=== PATIENT | male | born 1940 | race Caucasian/White ===

== ENCOUNTER → 2022-04-06 09:35 | Outpatient (CLI) | payer MEDICARE, BC, SELFPAY ==
--- NOTE | 2022-04-06 09:37 | DI.RAD.S_ITS ---
PROCEDURE: XR HIP W PEL IF DONE RT 2V INDICATIONS: hip pain TECHNIQUE: AP pelvis with lateral view(s) of the right hip(s). COMPARISON: None. FINDINGS: Bones: No fractures or dislocations. Mild degenerative changes of both hips. Pelvic ring appears intact. No suspicious bony lesions. Soft tissues: The visualized bowel gas pattern is normal. No suspicious soft tissue calcifications. IMPRESSION: Mild degenerative changes of both hips. Dictated by: Som Menendez M.D. on 04/06/2022 at 9:19 Approved by: Som Menendez M.D. on 04/06/2022 at 9:20
== END ==
PROVIDERS: PCP Internal Medicine; Referring Provider Physician Assistant; Visit Provider Physician Assistant
DX: M25.551 Pain in right hip (principal)
CPT/HCPCS: 73502

== ENCOUNTER → 2022-07-19 07:48 | Outpatient (CLI) | payer MEDICARE, BC, SELFPAY ==
[2022-07-19 08:37] LABS: Add Manual Diff / Slide Review NO; Basophils Absolute Auto 0 /uL (0-100); Basophils Percent Auto 0.5 % (0-2); Eosinophils Absolute Auto 100 /uL (0-450); Eosinophils Percent Auto 1.3 % (2-4); Hematocrit 42.4 % (41-53); Hemoglobin 14.1 g/dL (13.5-17.5); Lymphocytes Absolute Auto 1100 /uL (1100-4500); Lymphocytes Percent Auto 23.9 % (25-40); Mean Corpuscular HGB Conc 33.4 % (30-36); Mean Corpuscular Volume 95.8 fL (80-100); Monocytes Absolute Auto 500 /uL (0-900); Monocytes Percent Auto 9.6 % (3-14); Neutrophils Absolute Auto 3000 /uL (1500-7000); Neutrophils Percent Auto 64.7 % (50-75); Platelet Count 212 X10^3/uL (150-400); Red Blood Cell Count 4.42 X10^6/uL (4.5-5.9); Red Cell Distribution Width 13.6 % (11.6-14.8); White Blood Cell Count 4.7 X10^3/uL (4.5-11.0)
[2022-07-19 08:52] LABS: Alanine Aminotransferase 23 IU/L (<50); Albumin 4.1 g/dL (3.5-5.0); Albumin Globulin Ratio 1.5 (1.0-2.8); Alkaline Phosphatase 53 U/L (38-126); Aspartate Aminotransferase 29 IU/L (17-59); BUN Creatinine Ratio 18.6 (6-22); Bilirubin Total 0.6 mg/dL (0.2-1.3); Blood Urea Nitrogen 16 mg/dL (9-20); Calcium 8.6 mg/dL (8.4-10.2); Carbon Dioxide 26 mmol/L (22-32); Chloride 104 mmol/L (98-107); Cholesterol 148 mg/dL (140-199); Estimated Glomerular Filt Rate > 60 mL/min (>60); Globulin 2.7 g/dL (1.7-4.1); Glucose 93 mg/dL (80-110); HDL Cholesterol 64 mg/dL (40-60); HEMOLYSIS 20 (0-50); LDL Cholesterol Calculated 74 mg/dL (<100); Potassium 4.3 mmol/L (3.4-5.1); Sodium 139 mmol/L (137-145); Total Protein 6.8 g/dL (6.3-8.2); Triglycerides 50 mg/dL (35-150)
[2022-07-19 09:39] LABS: Vitamin B12 237 pg/mL (239-931)
== END ==
PROVIDERS: PCP Family Medicine; Referring Provider Family Medicine; Visit Provider Family Medicine
DX: G25.0 Essential tremor (principal); I10 Essential (primary) hypertension; N40.1 Benign prostatic hyperplasia with lower urinary tract symptoms; N52.9 Male erectile dysfunction, unspecified; R97.20 Elevated prostate specific antigen [PSA]; R41.3 Other amnesia
CPT/HCPCS: 36415; 80053; 80061; 82607; 84443; 85025

== ENCOUNTER → 2022-09-18 | Outpatient (CLI) | payer MEDICARE, BC, SELFPAY ==
--- NOTE | 2022-09-18 08:10 | DI.MRI.S_ITS ---
PROCEDURE: MR HEAD/BRAIN WO/W CON INDICATIONS: ABNORMAL FINDING ON MRI BRAIN TECHNIQUE: Noncontrast axial T1 spin echo, axial T2 fast spin echo, sagittal and axial FLAIR, coronal T2 fast spin echo, axial gradient echo, axial diffusion and ADC through the brain. After the administration of contrast, axial and coronal and sagittal T1 spin echo with fat saturation through the brain. COMPARISON: Brain MRI report dated 01/09/2022. FINDINGS: Image quality: Excellent. CSF spaces: Basal cisterns are patent. No extra-axial fluid collections. Ventricles are mildly enlarged and otherwise normal in size and shape. Brain: No midline shift. No acute intracranial bleeds or masses. Curvilinear low gradient echo signal intensity within the cortex and subcortical white matter of the left frontal lobe anteriorly and posterosuperiorly. No evidence of low gradient echo signal intensity within the left parietal lobe. No abnormal intracranial enhancement. There is cerebral volume loss for age. There is periventricular white matter chronic small vessel ischemic change. The brainstem appears normal. Diffusion-weighted images demonstrate no acute ischemic insults. No chronic ischemic insults. Normal intravascular flow voids are present. Skull and face: Calvarial marrow is normal in signal. Orbits appear normal. Sinuses: Sinuses and mastoids appear clear. IMPRESSION: 1. Volume loss and small vessel ischemic disease. 2. Low gradient echo signal intensity within the left cerebral hemisphere as reported before, consistent with sequelae of remote hemorrhage. No evidence of acute hemorrhage. 3. Lateral ventricular enlargement, similar to prior report, consistent with sequelae of volume loss, versus normal pressure hydrocephalus in the appropriate clinical setting. 4. No acute intracranial abnormality. No recent infarct. Dictated by: Shayla Jones M.D. on 09/27/2022 at 10:40 Approved by: Shayla Jones M.D. on 09/27/2022 at 10:43
--- NOTE | 2022-09-18 08:10 | DI.MRI.S_ITS ---
PROCEDURE: MR ANGIO HEAD WO CON INDICATIONS: ABNORMAL FINDING ON MRI BRAIN TECHNIQUE: Noncontrast axial 3-D [id number] MR angiogram, with 3-dimensional maximum intensity projection (MIP) reformats of the internal carotid arteries and posterior circulation then performed. COMPARISON: None. FINDINGS: Image quality: Excellent. Anterior circulation: Intracranial internal carotid arteries demonstrate normal size and intraluminal flow signal. The flow within the paired anterior cerebral arteries is normal and symmetric. The flow within the middle cerebral arteries is normal and symmetric. The anterior communicating artery is seen. No stenoses, occlusions, or aneurysms. Posterior circulation: Visualized portions of the vertebral arteries demonstrate normal caliber, and join to form a normal appearing basilar artery. The flow within the posterior cerebral arteries is normal and symmetric. No stenoses, occlusions, or aneurysms. IMPRESSION: Negative cerebral MR angiography. Dictated by: Shayla Jones M.D. on 09/27/2022 at 10:43 Transcribed by: ROLANDO on 09/27/2022 at 10:45 Approved by: Shayla Jones M.D. on 09/27/2022 at 15:47
== END ==
LOC: MRI 08:07
PROVIDERS: PCP Family Medicine; Referring Provider Psychiatry & Neurology Neurology; Visit Provider Psychiatry & Neurology Neurology
DX: R90.89 Other abnormal findings on diagnostic imaging of central nervous system (principal)
CPT/HCPCS: 70544; 70553; A9579

== ENCOUNTER → 2023-02-13 16:32 | Outpatient (CLI) | payer MEDICARE, BC, SELFPAY ==
--- NOTE | 2023-02-13 16:34 | DI.RAD.S_ITS ---
PROCEDURE: XR LUMBAR SPINE 2-3V INDICATIONS: RIGHT HIP AND LOW BACK PAIN TECHNIQUE: 3 views of the lumbar spine were acquired. COMPARISON: None. FINDINGS: Bones: 5 [id number] vertebrae are present. There is normal bony alignment. No vertebral body compression fractures. No suspicious bony lesions. Mild levocurvature centered at L3-L4. Multilevel degenerative disc space loss, severe at L2-L3. Lower lumbar facet arthropathy. Soft tissues: Overlying bowel gas pattern is normal. No suspicious soft tissue calcifications. IMPRESSION: Degenerative change. No evidence acute bony abnormality. If clinical suspicion and/or symptoms persist, further assessment with repeat plain films, or advanced imaging (e.g., CT, MRI, or bone scan) may be helpful for further assessment. Dictated by: Diego Young M.D. on 02/14/2023 at 10:06 Approved by: Diego Young M.D. on 02/14/2023 at 10:07
--- NOTE | 2023-02-13 16:34 | DI.RAD.S_ITS ---
PROCEDURE: XR HIP W PEL IF DONE RT 2V INDICATIONS: right hip and low back pain TECHNIQUE: AP pelvis with lateral view(s) of the right hip(s). COMPARISON: [facility], , XR HIP W PEL IF DONE RT 2V, 04/06/2022, 9:26. FINDINGS: Bones: No fractures or dislocations. Pelvic ring appears intact. No suspicious bony lesions. Bilateral hip degenerative change, right greater than left. Soft tissues: The visualized bowel gas pattern is normal. No suspicious soft tissue calcifications. IMPRESSION: Bilateral hip degenerative change. No evidence acute bony abnormality. If clinical suspicion and/or symptoms persist, further assessment with repeat plain films, or advanced imaging (e.g., CT, MRI, or bone scan) may be helpful for further assessment. Dictated by: Diego Young M.D. on 02/14/2023 at 10:03 Approved by: Diego Young M.D. on 02/14/2023 at 10:06
== END ==
PROVIDERS: PCP Family Medicine; Referring Provider Family Medicine; Visit Provider Family Medicine
DX: M54.50 Low back pain, unspecified (principal); M25.551 Pain in right hip
CPT/HCPCS: 72100; 73502

== ENCOUNTER → 2023-02-26 07:58 | Outpatient (CLI) | payer MEDICARE, BC, SELFPAY ==
[2023-02-26 08:47] LABS: Add Manual Diff / Slide Review NO; Basophils Absolute Auto 0 /uL (0-100); Basophils Percent Auto 0.5 % (0-2); Eosinophils Absolute Auto 100 /uL (0-450); Eosinophils Percent Auto 1.4 % (2-4); Hematocrit 41.7 % (41-53); Hemoglobin 14.3 g/dL (13.5-17.5); Lymphocytes Absolute Auto 1100 /uL (1100-4500); Lymphocytes Percent Auto 25.7 % (25-40); Mean Corpuscular HGB Conc 34.3 % (30-36); Mean Corpuscular Hemoglobin 32.8 PG (26-34); Mean Corpuscular Volume 95.6 fL (80-100); Monocytes Absolute Auto 500 /uL (0-900); Monocytes Percent Auto 11.5 % (3-14); Neutrophils Absolute Auto 2700 /uL (1500-7000); Neutrophils Percent Auto 60.9 % (50-75); Platelet Count 213 X10^3/uL (150-400); Red Blood Cell Count 4.37 X10^6/uL (4.5-5.9); White Blood Cell Count 4.4 X10^3/uL (4.5-11.0)
[2023-02-26 09:18] LABS: Alanine Aminotransferase 25 IU/L (<50); Albumin 4.3 g/dL (3.5-5.0); Albumin Globulin Ratio 1.7 (1.0-2.8); Alkaline Phosphatase 48 U/L (38-126); Aspartate Aminotransferase 31 IU/L (17-59); Bilirubin Total 0.6 mg/dL (0.2-1.3); Blood Urea Nitrogen 13 mg/dL (9-20); Carbon Dioxide 28 mmol/L (22-32); Chloride 102 mmol/L (98-107); Cholesterol 170 mg/dL (140-199); Estimated Glomerular Filt Rate > 60 mL/min (>60); Globulin 2.5 g/dL (1.7-4.1); Glucose 89 mg/dL (80-110); HDL Cholesterol 88 mg/dL (40-60); HEMOLYSIS < 15 (0-50); LDL Cholesterol Calculated 74 mg/dL (<100); Potassium 4.6 mmol/L (3.4-5.1); Sodium 137 mmol/L (137-145); Total Protein 6.8 g/dL (6.3-8.2); Triglycerides 39 mg/dL (35-150)
[2023-02-26 09:43] LABS: Prostate Specific Antigen 11.6 ng/mL (0.10-4.00)
== END ==
PROVIDERS: PCP Family Medicine; Referring Provider Family Medicine; Visit Provider Family Medicine
DX: G20 Parkinson's disease (principal); I10 Essential (primary) hypertension; N40.0 Benign prostatic hyperplasia without lower urinary tract symptoms; R97.20 Elevated prostate specific antigen [PSA]; G25.0 Essential tremor
CPT/HCPCS: 36415; 80053; 80061; 84153; 85025

== ENCOUNTER → 2023-05-17 11:30 | Outpatient (CLI) | payer MEDICARE, BC, SELFPAY ==
--- NOTE | 2023-05-17 11:32 | DI.RAD.S_ITS ---
PROCEDURE: XR HAND RT MIN 3V INDICATIONS: 1st MTP pain after fall TECHNIQUE: 3 views of the hand(s) acquired. COMPARISON: None. FINDINGS: Bones: No fractures or dislocations. Carpal bones are normally aligned. No suspicious bony lesions. Soft tissues: No suspicious soft tissue calcifications. IMPRESSION: Unremarkable right hand radiographs Approved by: Wellington Leong M.D. on 05/17/2023 at 12:49
== END ==
PROVIDERS: PCP Family Medicine; Referring Provider Physician Assistant; Visit Provider Physician Assistant
DX: M79.644 Pain in right finger(s) (principal)
CPT/HCPCS: 73130

== ENCOUNTER → 2023-06-05 15:10 | Outpatient (CLI) | payer MEDICARE, BC, SELFPAY ==
--- NOTE | 2023-06-05 15:11 | DI.MRI.S_ITS ---
PROCEDURE: MR PELVIC PROSTATE PROTOCOL INDICATIONS: Elevated PSA abnormal prostate TECHNIQUE: Coronal HASTE, axial T1 FSE with fat saturation, 3-plane nonbreath-hold T2 FSE. After the administration of contrast, dynamic axial, delayed axial and coronal VIBE or 2-D FLASH with fat saturation through the pelvis. Optional diffusion weighted imaging and ADC may be performed. COMPARISON: None. FINDINGS: Image quality: Diffusion weighted and dynamic contrast enhanced images are diagnostic. Prostate: The prostate measures 5.9 x 4.1 x 5.3 centimeters. Estimated volume is 67 cc. Centered in the left posterolateral mid gland peripheral zone, there is a T2 hypointense region measuring about 1.4 x 0.7 by 1.1 centimeters (4/16, 5/15). T2 score is 4. There is associated diffusion restriction (DWI score is 4). There is also associated dynamic contrast enhancement (/24). PI-RADS 4. Seminal vesicles are clear. No macroscopic extracapsular extension, although if biopsies are positive, extent of capsular contact of this lesion raises concern for micro capsular involvement. Transitional zone heterogenous nodules are present, either well encapsulated or mostly encapsulated, compatible with PI-RADS 1 or 2 likely BPH nodules. Mildly T2 hypointense heterogenous striated appearance of the peripheral zone is commonly seen with current or prior prostatitis, PI-RADS 2. Exophytic projection at the apex of the bladder likely additional BPH nodules. Genitourinary system: Trabeculated bladder with diverticula. No ureter dilation distally. Bowel and peritoneum: No bowel obstruction or pathologic ascites. Nodes and vessels: No pathologic lymph nodes. No aneurysmal vessel. Soft tissues: No hernias or pelvic wall significant abnormality. Bones: Unremarkable. IMPRESSION: PI-RADS 4 lesion centered in the left posterolateral peripheral zone mid gland. Dictated by: Gideon Dos Santos M.D. on 06/06/2023 at 9:38 Approved by: Gideon Dos Santos M.D. on 06/06/2023 at 9:42
== END ==
PROVIDERS: PCP Family Medicine; Referring Provider Urology; Visit Provider Urology
DX: N42.9 Disorder of prostate, unspecified (principal); R97.20 Elevated prostate specific antigen [PSA]
CPT/HCPCS: 72197; A9579

== ENCOUNTER → 2023-10-13 08:46 | Outpatient (CLI) | payer MEDICARE, BC, SELFPAY ==
--- NOTE | 2023-10-13 08:49 | DI.CT.S_ITS ---
PROCEDURE: CT ABDOMEN PELVIS W CON INDICATIONS: New diagnosis prostate cancer TECHNIQUE: After the administration of intravenous contrast, axial sections acquired from the lung bases to the pubic symphysis. Coronal and sagittal reformats were performed. For radiation dose reduction, the following was used: automated exposure control, adjustment of mA and/or kV according to patient size. COMPARISON: None. FINDINGS: Image quality: Diagnostic. Lower Chest: No significant findings. ABDOMEN: Liver: No solid mass. 1.2 centimeter hypoattenuating lesion in segment 4, probably a cyst. Gallbladder: No radiopaque gallstones or wall thickening. Biliary ducts: No biliary dilation. Pancreas: No ductal dilation. Spleen: Size is within normal limits. Adrenal Glands: No adrenal nodules. Kidneys and Ureters: No hydronephrosis. No solid mass. No complex renal cystic lesion which requires follow up. Stomach and Bowel: Normal colonic caliber, without significant wall thickening. Colonic diverticulosis without evidence of diverticulitis. Peritoneum: No abnormal intraperitoneal fluid. No free air. Ventral Wall: No hernia. Abdominal Nodes: No retroperitoneal or mesenteric adenopathy by size criteria. Vessels: Aorta and inferior vena cava are normal in size. 1 centimeter splenic artery aneurysm. PELVIS: Pelvic Organs: Focus of enhancement along the left lateral peripheral zone of the mid gland (series 2, image 77). Bladder: Asymmetric anterior bladder wall thickening. Pelvic Nodes: No enlarged lymph nodes. Miscellaneous: Small right inguinal hernia containing fat. Bones: No aggressive osseous abnormality. Opposing endplate sclerosis at L5-S1 and L2-3. Wedge-shaped region of sclerosis on the inferior endplate of L2. IMPRESSION: Focus of enhancement along the left lateral peripheral zone of the prostate midgland, most consistent with the primary malignancy. No retroperitoneal or pelvic adenopathy. Wedge-shaped region of sclerosis on the inferior endplate of L2, possibly due to a developing Schmorl's node. Low to intermediate suspicion for metastatic disease. 1 centimeter splenic artery aneurysm. Yearly follow-up with CT of the abdomen is recommended per ACR consensus guidelines. Asymmetric anterior bladder wall thickening, possibly due to bladder trabeculation, less likely malignancy. Consider correlation with urinalysis or direct visualization. Dictated by: Mushtaq Ibanez M.D. on 10/13/2023 at 10:52 Approved by: Mushtaq Ibanez M.D. on 10/13/2023 at 10:58
--- NOTE | 2023-10-13 08:49 | DI.NM.S_ITS ---
PROCEDURE: NM BONE SCAN WHOLE BODY RADIOPHARMACEUTICAL: 21.6 mCi Tc-99m MDP IV. INDICATIONS: New diagnosis prostate cancer TECHNIQUE: Delayed whole-body scintigrams were obtained approximately 3-4 hours after intravenous injection of radiotracer. Anterior and posterior views were acquired from vertex to feet. Additional left and right oblique views of the pelvis were obtained. COMPARISON: [facility], CR, XR LUMBAR SPINE 2-3V, 02/13/2023, 16:34. [facility], MR, MR CERVICAL SPINE WITH/WITHOUT CONTRAST, 09/04/2023, 11:17. MR, MR PELVIC PROSTATE PROTOCOL, 06/05/2023, 15:28. [facility], CT, CT ABDOMEN PELVIS W CON, 10/13/2023, 9:23. FINDINGS: There are foci of increased in the lower cervical spine, midthoracic spine and lumbar spine. Significant degenerative changes are present based on prior radiograph, CT and MRI. No lesions are identified in skull, sternum, clavicles, scapulae, ribs, bony pelvis, and visualized shafts of the long bones. There are foci of increased periarticular activity most pronounced in shoulders, sternoclavicular joints, SI joints and hips, compatible with degenerative/arthritic changes. IMPRESSION: 1. Significant degenerative changes in spine, most pronounced in the lumbar spine, which could mask early metastasis. If there is high clinical suspicion for metastasis, MRI with and without contrast can be obtained. 2. Degenerative/arthritic changes in multiple peripheral joints. Dictated by: Vanessa Gaspar M.D. on 10/13/2023 at 14:23 Approved by: Vanessa Gaspar M.D. on 10/14/2023 at 7:41
[2023-10-13 09:12] LABS: Estimated Glomerular Filt Rate > 60 mL/min (>60)
== END ==
PROVIDERS: Radiology Diagnostic Radiology; PCP Family Medicine; Referring Provider Urology; Visit Provider Urology
DX: C61 Malignant neoplasm of prostate (principal); I72.8 Aneurysm of other specified arteries
CPT/HCPCS: 36415; 74177; 78306; 82565; A9503; Q9967

== ENCOUNTER → 2023-10-21 16:33 | Outpatient (CLI) | payer MEDICARE, BC, SELFPAY ==
--- NOTE | 2023-10-21 16:35 | DI.MRI.S_ITS ---
PROCEDURE: MR LUMBAR SPINE WO/W CON INDICATIONS: Bone scan f/u TECHNIQUE: Noncontrast sagittal T1 spin echo and T2 fast spin echo, sagittal STIR, axial T1 and T2 fast spin echo through the lumbar spine. In cases with scoliosis, additional coronal T2 fast spin echo may be performed. After the administration of contrast, sagittal and axial T1 spin echo with fat saturation through the lumbar spine. COMPARISON: [place], [place], [place] BONE SCAN WHOLE BODY, 10/13/2023, 10:17. FINDINGS: Image quality: Excellent. Alignment and curvature: Convex right thoracolumbar degenerative scoliosis. Marrow: Degenerative endplate changes noted including edematous Modic type 1 changes at L2-3 and L5-S1, corresponding with activity in the prior bone scan. No evidence metastatic marrow replacement Spinal cord: Conus medullaris terminates at the L1 level. Visualized spinal cord demonstrates normal signal, without suspicious enhancement. Paraspinous soft tissues: No paravertebral masses or abnormal enhancement. T12-L1: Normal appearance. L1-L2: Disc height is preserved. Mild disc bulge central or foraminal stenosis. Mild facet arthropathy present. L2-L3: Disc space narrowing with posterior disc bulge and arthropathy resulting in moderate central stenosis severe right and moderate left far foraminal stenosis L3-L4: Disc space narrowing with posterior disc bulge and dorsal epidural fat combined with hypertrophic facet joints results in moderate to severe central stenosis. There is a high-intensity zone in the posterior annulus reflecting annular fissure or tear. Severe right and moderate left foraminal stenosis L4-L5: Disc space narrowing with posterior disc bulge and hypertrophic facet joints results in mild central stenosis. Severe right and moderate left foraminal stenosis L5-S1: Disc space narrowing and hypertrophic facet joints. No central stenosis. Severe left and moderate right foraminal stenosis IMPRESSION: Multilevel degenerative disc disease and arthropathy results in varying degrees of central and foraminal stenosis including moderate to severe central stenosis at L3-4 and severe foraminal stenosis L3-4, L4-5 and L5-S1. Degenerative endplate changes without evidence of metastatic disease Approved by: Wellington Leong M.D. on 10/22/2023 at 11:19
== END ==
PROVIDERS: PCP Family Medicine; Referring Provider Family Medicine; Visit Provider Family Medicine
DX: C61 Malignant neoplasm of prostate (principal); M48.061 Spinal stenosis, lumbar region without neurogenic claudication; M48.07 Spinal stenosis, lumbosacral region; M51.36 Other intervertebral disc degeneration, lumbar region; M47.816 Spondylosis without myelopathy or radiculopathy, lumbar region; M47.817 Spondylosis without myelopathy or radiculopathy, lumbosacral region
CPT/HCPCS: 72158; A9579

== ENCOUNTER → 2023-12-29 12:00 | Outpatient (CLI) | payer MEDICARE, BC, SELFPAY ==
[2023-12-29 13:24] LABS: BUN Creatinine Ratio 19.3 (6-22); Blood Urea Nitrogen 16 mg/dL (9-20); Calcium 8.9 mg/dL (8.4-10.2); Carbon Dioxide 30 mmol/L (22-32); Chloride 103 mmol/L (98-107); Estimated Glomerular Filt Rate > 60 mL/min (>60); Glucose 109 mg/dL (80-110); HEMOLYSIS < 15 (0-50); Potassium 4.4 mmol/L (3.4-5.1); Sodium 134 mmol/L (137-145)
[2023-12-29 13:51] LABS: Prostate Specific Antigen 19.6 ng/mL (0.10-4.00)
== END ==
PROVIDERS: PCP Family Medicine; Referring Provider Urology; Visit Provider Urology
DX: C61 Malignant neoplasm of prostate (principal)
CPT/HCPCS: 36415; 80048; 84153

== ENCOUNTER → 2024-02-05 11:48 | Outpatient (CLI) | payer MEDICARE, BC, SELFPAY ==
[2024-02-05 14:56] LABS: Prostate Specific Antigen 7.41 ng/mL (0.10-4.00)
== END ==
PROVIDERS: PCP Family Medicine; Referring Provider Urology; Visit Provider Urology
DX: C61 Malignant neoplasm of prostate (principal)
CPT/HCPCS: 36415; 84153

== ENCOUNTER 2024-04-15 06:18 | Emergency (ER) | payer MEDICARE, BC, SELFPAY ==
[2024-04-15] VITALS (27 sets, daily range): BP systolic 100–141; BP diastolic 57–81; PULSE 63–83; RESP 12–24; TEMP 36.6–37; O2SAT 91–98; BMI 25.8
--- NOTE | 2024-04-15 06:20 | DI.RAD.S_ITS ---
PROCEDURE: XR CHEST 1V INDICATIONS: chest pain TECHNIQUE: One view of the chest was acquired. COMPARISON: None. FINDINGS: Surgical changes and devices: Fusion hardware in visualized lower cervical spine is seen. Lungs and pleura: Lungs are clear. No pleural effusions or pneumothorax. Mediastinum: Mediastinal contours appear normal. Heart size is normal. Bones and chest wall: No suspicious bony lesions. Overlying soft tissues appear unremarkable. IMPRESSION: No acute cardiopulmonary pathology. No discrepancies from preliminary reading. Dictated by: Donald Claire M.D. on 04/15/2024 at 8:02 Approved by: Donald Claire M.D. on 04/15/2024 at 8:03
--- NOTE | 2024-04-15 06:21 | ED_ITS ---
HPI - Chest Pain <Sri Young MD - Last Filed: 04/16/24 03:58> General Chief Complaint: Chest Pain Stated Complaint: chest pain Time Seen by Provider: 04/15/24 06:20 History of Present Illness HPI narrative: 84-year-old male with history of moderate dementia, hypertension, hyperlipidemia presents by EMS from home for chest pain. History is limited as patient does have dementia and is having difficulty recalling his symptoms. EMS reports that when they arrived the patient was clutching the left side of his chest. He had taken 4 baby aspirins prior to their arrival. They gave nitroglycerin and fentanyl which did not change patient's chest pain. Patient can not remember if he was ever had pain like this before. He states that he thinks that he may have a stent but isn't sure and asks us to ask his , who is not currently present. Related Data Home Medications Medication Instructions Recorded Confirmed aspirin 81 mg tablet,delayed 81 mg PO DAILY 07/18/22 02/20/24 release atorvastatin 20 mg tablet 20 mg PO DAILY 07/18/22 02/20/24 tadalafil 20 mg tablet (Cialis) 20 mg PO DAILY PRN 07/18/22 02/20/24 sildenafil 50 mg tablet 50 mg PO DAILY PRN 08/27/22 02/20/24 memantine 5 mg tablet 5 mg PO BID 10/02/23 02/20/24 primidone 50 mg tablet 150 mg PO BEDTIME 10/02/23 02/20/24 donepezil 10 mg tablet 10 mg PO DAILY 03/30/24 Previous Rx's Medication Instructions Recorded terazosin 2 mg capsule 2 mg PO DAILY #90 caps 05/26/23 losartan 25 mg tablet See Rx Instructions .Route 12/17/23 .COMPLEX #90 tabs ezetimibe 10 mg tablet (Zetia) 10 mg PO DAILY #90 tabs 04/13/24 Allergies Allergy/AdvReac Type Severity Reaction Status Date / Time No Known Drug Allergies Allergy Unverified 10/02/23 11:26 Patient History <Sri Young MD - Last Filed: 04/16/24 03:58> Medical History (Updated 04/15/24 @ 09:02 by Johnny Maria DO) History of radiation therapy Prostate cancer Bladder outlet obstruction Lower urinary tract symptoms Abnormal prostate by palpation Atypical parkinsonism Short-term memory loss Elevated PSA BPH (benign prostatic hyperplasia) Erectile dysfunction Essential tremor Hypertension Social History Smoking Status: Never smoker Smoking Status: Never smoker Exam <Sri Young MD - Last Filed: 04/16/24 03:58> Initial Vital Signs Initial Vital Signs: Vital Signs Pulse Rate 82 04/15/24 06:20 Respiratory Rate 19 04/15/24 06:20 Pulse Oximetry 92 04/15/24 06:20 Const: Awake, alert, uncomfortable, in pain Cardiac: regular rate, regular rhythm RESP: unlabored, clear bilaterally GI: Soft, nontender, nondistended Skin: Warm, Dry, intact, no rashes Neuro: AO x1, CN II-XII grossly intact, moves all extremities <Johnny Maria DO - Last Filed: 04/15/24 09:02> Initial Vital Signs Initial Vital Signs: Vital Signs Pulse Rate 82 04/15/24 06:20 Respiratory Rate 19 04/15/24 06:20 Pulse Oximetry 92 04/15/24 06:20 Course <Sri Young MD - Last Filed: 04/16/24 03:58> Orders Ordered: Discontinued Medications Clopidogrel Bisulfate (Clopidogrel 75 Mg Tablet) 300 mg PO NOW ONE Stop: 04/15/24 07:40 Last Admin: 04/15/24 07:58 Dose: Not Given Documented By: RACHID Morphine Sulfate (Morphine 4 Mg/Ml Inj) 4 mg IV NOW ONE Stop: 04/15/24 06:21 Last Admin: 04/15/24 06:35 Dose: 4 mg Documented By: GORGE Nitroglycerin (Nitroglycerin 0.4 Mg Sl Tab) 0.4 mg SL [id number] PRN PRN Reason: Chest Pain Last Admin: 04/15/24 07:24 Dose: 0.4 mg Documented By: RACHID Vital Signs Vital signs: Vital Signs - 8 hr 04/15/24 06:20 04/15/24 06:24 04/15/24 06:30 Temperature 98.6 F Pulse Rate 82 83 76 Respiratory Rate 19 19 20 Blood Pressure 136/77 Pulse Oximetry 92 93 91 Oxygen Delivery Method Room Air 04/15/24 06:31 04/15/24 06:31 04/15/24 07:00 Temperature Pulse Rate 78 68 Respiratory Rate 18 16 Blood Pressure 138/75 Pulse Oximetry 93 94 Oxygen Delivery Method Room Air 04/15/24 07:00 04/15/24 07:24 04/15/24 07:27 Temperature Pulse Rate 65 67 Respiratory Rate 21 Blood Pressure 132/75 132/75 Pulse Oximetry 95 Oxygen Delivery Method 04/15/24 07:27 04/15/24 07:28 04/15/24 07:28 Temperature Pulse Rate 71 Respiratory Rate 20 Blood Pressure 135/66 141/76 H Pulse Oximetry 93 Oxygen Delivery Method 04/15/24 07:30 04/15/24 07:30 04/15/24 07:35 Temperature Pulse Rate 72 Respiratory Rate 16 Blood Pressure 100/57 L 108/60 Pulse Oximetry 94 Oxygen Delivery Method 04/15/24 07:35 04/15/24 07:40 04/15/24 07:40 Temperature Pulse Rate 73 68 Respiratory Rate 21 18 Blood Pressure 109/64 Pulse Oximetry 95 94 Oxygen Delivery Method 04/15/24 07:45 04/15/24 07:45 04/15/24 07:50 Temperature Pulse Rate 65 67 Respiratory Rate 13 12 Blood Pressure 114/66 Pulse Oximetry 93 92 Oxygen Delivery Method 04/15/24 07:50 04/15/24 07:55 04/15/24 07:55 Temperature Pulse Rate 70 Respiratory Rate 17 Blood Pressure 113/66 118/70 Pulse Oximetry 96 Oxygen Delivery Method 04/15/24 08:00 04/15/24 08:00 04/15/24 08:05 Temperature Pulse Rate 66 67 Respiratory Rate 18 17 Blood Pressure 117/65 Pulse Oximetry 92 93 Oxygen Delivery Method 04/15/24 08:05 04/15/24 08:10 04/15/24 08:10 Temperature Pulse Rate 66 Respiratory Rate 17 Blood Pressure 120/68 114/67 Pulse Oximetry 94 Oxygen Delivery Method 04/15/24 08:15 04/15/24 08:15 04/15/24 08:20 Temperature Pulse Rate 68 65 Respiratory Rate 24 Blood Pressure 116/68 Pulse Oximetry 94 96 Oxygen Delivery Method 04/15/24 08:20 04/15/24 08:25 04/15/24 08:25 Temperature Pulse Rate 65 Respiratory Rate 13 Blood Pressure 117/69 118/65 Pulse Oximetry 94 Oxygen Delivery Method 04/15/24 08:30 04/15/24 08:30 04/15/24 08:35 Temperature Pulse Rate 64 Respiratory Rate 17 Blood Pressure 119/70 117/62 Pulse Oximetry 97 Oxygen Delivery Method 04/15/24 08:35 04/15/24 08:40 04/15/24 08:40 Temperature Pulse Rate 64 66 Respiratory Rate 18 Blood Pressure 113/63 Pulse Oximetry 93 92 Oxygen Delivery Method 04/15/24 08:45 04/15/24 08:45 Temperature Pulse Rate 65 Respiratory Rate 23 Blood Pressure 133/74 Pulse Oximetry 96 Oxygen Delivery Method <Johnny Maria DO - Last Filed: 04/15/24 09:02> Orders Ordered: Discontinued Medications Clopidogrel Bisulfate (Clopidogrel 75 Mg Tablet) 300 mg PO NOW ONE Stop: 04/15/24 07:40 Last Admin: 04/15/24 07:58 Dose: Not Given Documented By: RACHID Morphine Sulfate (Morphine 4 Mg/Ml Inj) 4 mg IV NOW ONE Stop: 04/15/24 06:21 Last Admin: 04/15/24 06:35 Dose: 4 mg Documented By: GORGE Nitroglycerin (Nitroglycerin 0.4 Mg Sl Tab) 0.4 mg SL [id number] PRN PRN Reason: Chest Pain Last Admin: 04/15/24 07:24 Dose: 0.4 mg Documented By: RACHID Vital Signs Vital signs: Vital Signs - 8 hr 04/15/24 06:20 04/15/24 06:24 04/15/24 06:30 Temperature 98.6 F Pulse Rate 82 83 76 Respiratory Rate 19 19 20 Blood Pressure 136/77 Pulse Oximetry 92 93 91 Oxygen Delivery Method Room Air 04/15/24 06:31 04/15/24 06:31 04/15/24 07:00 Temperature Pulse Rate 78 68 Respiratory Rate 18 16 Blood Pressure 138/75 Pulse Oximetry 93 94 Oxygen Delivery Method Room Air 04/15/24 07:00 04/15/24 07:24 04/15/24 07:27 Temperature Pulse Rate 65 67 Respiratory Rate 21 Blood Pressure 132/75 132/75 Pulse Oximetry 95 Oxygen Delivery Method 04/15/24 07:27 04/15/24 07:28 04/15/24 07:28 Temperature Pulse Rate 71 Respiratory Rate 20 Blood Pressure 135/66 141/76 H Pulse Oximetry 93 Oxygen Delivery Method 04/15/24 07:30 04/15/24 07:30 04/15/24 07:35 Temperature Pulse Rate 72 Respiratory Rate 16 Blood Pressure 100/57 L 108/60 Pulse Oximetry 94 Oxygen Delivery Method 04/15/24 07:35 04/15/24 07:40 04/15/24 07:40 Temperature Pulse Rate 73 68 Respiratory Rate 21 18 Blood Pressure 109/64 Pulse Oximetry 95 94 Oxygen Delivery Method 04/15/24 07:45 04/15/24 07:45 04/15/24 07:50 Temperature Pulse Rate 65 67 Respiratory Rate 13 12 Blood Pressure 114/66 Pulse Oximetry 93 92 Oxygen Delivery Method 04/15/24 07:50 04/15/24 07:55 04/15/24 07:55 Temperature Pulse Rate 70 Respiratory Rate 17 Blood Pressure 113/66 118/70 Pulse Oximetry 96 Oxygen Delivery Method 04/15/24 08:00 04/15/24 08:00 04/15/24 08:05 Temperature Pulse Rate 66 67 Respiratory Rate 18 17 Blood Pressure 117/65 Pulse Oximetry 92 93 Oxygen Delivery Method 04/15/24 08:05 04/15/24 08:10 04/15/24 08:10 Temperature Pulse Rate 66 Respiratory Rate 17 Blood Pressure 120/68 114/67 Pulse Oximetry 94 Oxygen Delivery Method 04/15/24 08:15 04/15/24 08:15 04/15/24 08:20 Temperature Pulse Rate 68 65 Respiratory Rate 24 Blood Pressure 116/68 Pulse Oximetry 94 96 Oxygen Delivery Method 04/15/24 08:20 04/15/24 08:25 04/15/24 08:25 Temperature Pulse Rate 65 Respiratory Rate 13 Blood Pressure 117/69 118/65 Pulse Oximetry 94 Oxygen Delivery Method 04/15/24 08:30 04/15/24 08:30 04/15/24 08:35 Temperature Pulse Rate 64 Respiratory Rate 17 Blood Pressure 119/70 117/62 Pulse Oximetry 97 Oxygen Delivery Method 04/15/24 08:35 04/15/24 08:40 04/15/24 08:40 Temperature Pulse Rate 64 66 Respiratory Rate 18 Blood Pressure 113/63 Pulse Oximetry 93 92 Oxygen Delivery Method 04/15/24 08:45 04/15/24 08:45 Temperature Pulse Rate 65 Respiratory Rate 23 Blood Pressure 133/74 Pulse Oximetry 96 Oxygen Delivery Method MDM - Chest Pain <Sri Young MD - Last Filed: 04/16/24 03:58> Differential Diagnosis Differential diagnosis: Likely fracture of rib, pneumothorax and stable angina Lab Data 04/15/24 06:00 04/15/24 06:00 Labs: Lab Results 04/15/24 04/15/24 Range/Units 06:00 08:04 WBC 4.4 L (4.5-11.0) X10^3/uL RBC 4.52 (4.5-5.9) X10^6/uL Hgb 14.9 (13.5-17.5) g/dL Hct 43.9 (41-53) % MCV 97.1 (80-100) fL MCH 33.0 (26-34) PG MCHC 34.0 (30-36) % RDW 13.9 (11.6-14.8) % Plt Count 249 (150-400) X10^3/uL Neut % (Auto) 51.9 (50-75) % Lymph % (Auto) 30.2 (25-40) % [place] % (Auto) 14.1 H (3-14) % Eos % (Auto) 3.1 (2-4) % Baso % (Auto) 0.7 (0-2) % Neut # (Auto) 2300 (5822-7257) /uL Lymph # (Auto) 1300 (9491-8353) /uL [place] # (Auto) 600 (0-900) /uL Eos # (Auto) 100 (0-450) /uL Baso # (Auto) 0 (0-100) /uL PT 11.0 (9.4-12.5) SECONDS INR 1.0 (0.9-1.3) APTT 32 (25.1-36.5) SECONDS D-Dimer 535 H (<500) ng/ml Sodium 142 (137-145) mmol/L Potassium 4.1 (3.4-5.1) mmol/L Chloride 108 H (98-107) mmol/L Carbon Dioxide 26 (22-32) mmol/L BUN 13 (9-20) mg/dL Creatinine 0.90 (0.66-1.25) mg/dL Estimated GFR > 60 (>60) mL/min BUN/Creatinine Ratio 14.4 (6-22) Glucose 84 (80-110) mg/dL Calcium 8.9 (8.4-10.2) mg/dL Magnesium 2.2 (1.6-2.3) mg/dL Total Bilirubin 0.5 (0.2-1.3) mg/dL AST 40 (17-59) IU/L ALT 32 (<50) IU/L Alkaline Phosphatase 64 (38-126) U/L Total Creatine Kinase 259 H 227 H (55-170) U/L Troponin I < 0.012 < 0.012 (0.01-0.034) ng/mL Total Protein 7.6 (6.3-8.2) g/dL Albumin 4.5 (3.5-5.0) g/dL Globulin 3.1 (1.7-4.1) g/dL Albumin/Globulin Ratio 1.5 (1.0-2.8) ECG Data Interpretation: Normal sinus rhythm at 73 beats per minute. Normal LA. No ST T wave changes, no STEMI <Johnny Maria DO - Last Filed: 04/15/24 09:02> Lab Data Labs: Lab Results 04/15/24 04/15/24 Range/Units 06:00 08:04 WBC 4.4 L (4.5-11.0) X10^3/uL RBC 4.52 (4.5-5.9) X10^6/uL Hgb 14.9 (13.5-17.5) g/dL Hct 43.9 (41-53) % MCV 97.1 (80-100) fL MCH 33.0 (26-34) PG MCHC 34.0 (30-36) % RDW 13.9 (11.6-14.8) % Plt Count 249 (150-400) X10^3/uL Neut % (Auto) 51.9 (50-75) % Lymph % (Auto) 30.2 (25-40) % [place] % (Auto) 14.1 H (3-14) % Eos % (Auto) 3.1 (2-4) % Baso % (Auto) 0.7 (0-2) % Neut # (Auto) 2300 (5537-3964) /uL Lymph # (Auto) 1300 (8509-3224) /uL [place] # (Auto) 600 (0-900) /uL Eos # (Auto) 100 (0-450) /uL Baso # (Auto) 0 (0-100) /uL PT 11.0 (9.4-12.5) SECONDS INR 1.0 (0.9-1.3) APTT 32 (25.1-36.5) SECONDS D-Dimer 535 H (<500) ng/ml Sodium 142 (137-145) mmol/L Potassium 4.1 (3.4-5.1) mmol/L Chloride 108 H (98-107) mmol/L Carbon Dioxide 26 (22-32) mmol/L BUN 13 (9-20) mg/dL Creatinine 0.90 (0.66-1.25) mg/dL Estimated GFR > 60 (>60) mL/min BUN/Creatinine Ratio 14.4 (6-22) Glucose 84 (80-110) mg/dL Calcium 8.9 (8.4-10.2) mg/dL Magnesium 2.2 (1.6-2.3) mg/dL Total Bilirubin 0.5 (0.2-1.3) mg/dL AST 40 (17-59) IU/L ALT 32 (<50) IU/L Alkaline Phosphatase 64 (38-126) U/L Total Creatine Kinase 259 H 227 H (55-170) U/L Troponin I < 0.012 < 0.012 (0.01-0.034) ng/mL Total Protein 7.6 (6.3-8.2) g/dL Albumin 4.5 (3.5-5.0) g/dL Globulin 3.1 (1.7-4.1) g/dL Albumin/Globulin Ratio 1.5 (1.0-2.8) Imaging Data Chest x-ray: Radiologist's Impression: PROCEDURE: XR CHEST 1V INDICATIONS: chest pain TECHNIQUE: One view of the chest was acquired. COMPARISON: None. FINDINGS: Surgical changes and devices: Fusion hardware in visualized lower cervical spine is seen. Lungs and pleura: Lungs are clear. No pleural effusions or pneumothorax. Mediastinum: Mediastinal contours appear normal. Heart size is normal. Bones and chest wall: No suspicious bony lesions. Overlying soft tissues appear unremarkable. IMPRESSION: No acute cardiopulmonary pathology. No discrepancies from preliminary reading. MDM Narrative Medical decision making narrative: Dr Maria: Received turned over. Review patient's history and physical exam. Nonischemic EKG. Troponins are negative x2. No skin changes concerning for zoster. Chest x-ray is negative. Negative age adjusted D-dimer. Afebrile. Had a discussion with the family regarding the symptoms. Low suspicion for PE, ACS, pneumonia. I do suspect superficial/musculoskeletal as during my exam he states that the discomfort is reproducible with touching. Had a long discussion with the patient's family regarding the lack of a definitive diagnosis but also my low concern for cardiac. Will discharge patient home with instructions to contact primary doctor to follow-up and discuss further evaluation if needed. Discharge Plan Departure Patient Disposition: Home Clinical Impression: Chest wall pain Instructions: DI for Atypical Chest Pain Activity Restrictions/Additional Instructions: Continue to take all of your medications as directed. I recommend that you contact his primary care doctor for follow-up to discuss further evaluation if needed to include a stress test. Return to the emergency department for new or worsening symptoms. Prescriptions: No Action losartan 25 mg tablet See Rx Instructions .ROUTE .COMPLEX Qty: 90 3RF Dose Instruction: TAKE 1 TABLET BY MOUTH DAILY Rx Instructions: TAKE 1 TABLET BY MOUTH DAILY donepezil 10 mg tablet 10 mg PO DAILY ezetimibe [Zetia] 10 mg tablet 10 mg PO DAILY Qty: 90 3RF sildenafil 50 mg tablet 50 mg PO DAILY PRN Rx Instructions: administer 30 minutes to 4 hours before activity aspirin 81 mg tablet,delayed release (DR/EC) 81 mg PO DAILY atorvastatin 20 mg tablet 20 mg PO DAILY tadalafil [Cialis] 20 mg tablet 20 mg PO DAILY PRN Rx Instructions: administer approximately 30min before sexual activity; do not use more than 1 dose per 24hrs primidone 50 mg tablet 150 mg PO BEDTIME memantine 5 mg tablet 5 mg PO BID terazosin 2 mg capsule 2 mg PO DAILY Qty: 90 3RF Referrals: Vega Villanueva MD [Primary Care Provider] - Stand Alone Forms: Patient Portal/API
--- NOTE | 2024-04-15 06:27 | EKG_ITS ---
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
[2024-04-15] MEDS: MORPHINE 4 MG/ML INJ IV (06:35)
[2024-04-15 06:36] LABS: Add Manual Diff / Slide Review NO; Basophils Absolute Auto 0 /uL (0-100); Basophils Percent Auto 0.7 % (0-2); Eosinophils Absolute Auto 100 /uL (0-450); Eosinophils Percent Auto 3.1 % (2-4); Hematocrit 43.9 % (41-53); Hemoglobin 14.9 g/dL (13.5-17.5); Lymphocytes Absolute Auto 1300 /uL (1100-4500); Lymphocytes Percent Auto 30.2 % (25-40); Mean Corpuscular Volume 97.1 fL (80-100); Monocytes Absolute Auto 600 /uL (0-900); Monocytes Percent Auto 14.1 % (3-14); Neutrophils Absolute Auto 2300 /uL (1500-7000); Neutrophils Percent Auto 51.9 % (50-75); Platelet Count 249 X10^3/uL (150-400); Red Blood Cell Count 4.52 X10^6/uL (4.5-5.9); Red Cell Distribution Width 13.9 % (11.6-14.8); White Blood Cell Count 4.4 X10^3/uL (4.5-11.0)
[2024-04-15 06:53] LABS: PTT Partial Thromboplastin Tim 32 SECONDS (25.1-36.5)
[2024-04-15 06:56] LABS: Alanine Aminotransferase 32 IU/L (<50); Albumin 4.5 g/dL (3.5-5.0); Albumin Globulin Ratio 1.5 (1.0-2.8); Alkaline Phosphatase 64 U/L (38-126); Aspartate Aminotransferase 40 IU/L (17-59); BUN Creatinine Ratio 14.4 (6-22); Bilirubin Total 0.5 mg/dL (0.2-1.3); Blood Urea Nitrogen 13 mg/dL (9-20); Calcium 8.9 mg/dL (8.4-10.2); Carbon Dioxide 26 mmol/L (22-32); Chloride 108 mmol/L (98-107); Creatine Kinase 259 U/L (55-170); Estimated Glomerular Filt Rate > 60 mL/min (>60); Globulin 3.1 g/dL (1.7-4.1); Glucose 84 mg/dL (80-110); HEMOLYSIS < 15 (0-50); Magnesium 2.2 mg/dL (1.6-2.3); Potassium 4.1 mmol/L (3.4-5.1); Sodium 142 mmol/L (137-145); Total Protein 7.6 g/dL (6.3-8.2)
[2024-04-15 07:07] LABS: Troponin I < 0.012 ng/mL (0.01-0.034)
[2024-04-15] MEDS: NITROGLYCERIN 0.4 MG SL TAB SL (07:24)
[2024-04-15 07:31] LABS: D Dimer 535 ng/ml (<500)
--- NOTE | 2024-04-15 07:42 | PC.NURSE ---
Pt c/o 2/10 CP; pt given 1 nitro w/ no improvement of chest pain. Pt pressure dropped to 100/57 after nitro. MD informed. Will hold off on another dose. Pt states pain has been worse upon inspiration.
[2024-04-15 08:20] LABS: Creatine Kinase 227 U/L (55-170)
[2024-04-15 08:33] LABS: Troponin I < 0.012 ng/mL (0.01-0.034)
--- NOTE | 2024-04-15 09:17 | PC.NURSE ---
Pain worse w/ inspiration.
== END 2024-04-15 09:17 | disposition home or self-care (01) ==
PROVIDERS: Emergency Medicine; Emergency Provider Emergency Medicine; PCP Family Medicine
DX: R07.89 Other chest pain (principal); F03.90 Unspecified dementia, unspecified severity, without behavioral disturbance, psychotic disturbance, mood disturbance, and anxiety
CPT/HCPCS: 36415; 71045; 80053; 82550; 83735; 84484; 85025; 85379; 85610; 85730; 93005; 96374; 99284; J2270

== ENCOUNTER → 2024-05-13 13:50 | Outpatient (CLI) | payer MEDICARE, BC, SELFPAY ==
[2024-05-13 17:00] LABS: Prostate Specific Antigen 2.28 ng/mL (0.10-4.00)
== END ==
LOC: LAB 13:55
PROVIDERS: PCP Family Medicine; Referring Provider Urology; Visit Provider Urology
DX: R97.20 Elevated prostate specific antigen [PSA] (principal)
CPT/HCPCS: 36415; 84153

== ENCOUNTER 2024-06-11 23:17 | Emergency (ER) | payer MEDICARE, BC, SELFPAY ==
[2024-06-11 23:20] VITALS: BP 158/86
[2024-06-11 23:21] VITALS: PULSE 79; O2SAT 98
--- NOTE | 2024-06-11 23:21 | DI.CT.S_ITS ---
PROCEDURE: CT CERVICAL SPINE WO CON INDICATIONS: right chest pain, fall vs syncope, head lac TECHNIQUE: Noncontrast 3 mm thick sections acquired from the skull base to the T4 level. Sagittal and coronal reformats were then constructed. For radiation dose reduction, the following was used: automated exposure control, adjustment of mA and/or kV according to patient size. COMPARISON: None. FINDINGS: Image quality: Excellent. Bones: C5-C7 ACDF. No fractures or dislocations. Visualized superior ribs are intact. Soft tissues: Prevertebral soft tissues are normal in thickness. No paravertebral hematomas. No apical pneumothoraces. IMPRESSION: No displaced fracture or traumatic subluxation. Dictated by: Curtis Martinez M.D. on 06/12/2024 at 1:02 Approved by: Curtis Martinez M.D. on 06/12/2024 at 1:05
--- NOTE | 2024-06-11 23:21 | DI.RAD.S_ITS ---
PROCEDURE: XR CHEST 1V INDICATIONS: right chest pain, fall vs syncope, head lac TECHNIQUE: One view of the chest was acquired. COMPARISON: [facility], CR, XR CHEST 1V, 04/15/2024, 6:19. FINDINGS: Surgical changes and devices: ACDF. Lungs and pleura: Lungs are clear. No pleural effusions or pneumothorax. Mediastinum: Mediastinal contours appear normal. Heart size is normal. Bones and chest wall: No suspicious bony lesions. Overlying soft tissues appear unremarkable. IMPRESSION: No acute cardiopulmonary abnormality is seen. Dictated by: Curtis Martinez M.D. on 06/12/2024 at 0:44 Approved by: Curtis Martinez M.D. on 06/12/2024 at 0:45
--- NOTE | 2024-06-11 23:21 | DI.CT.S_ITS ---
PROCEDURE: CT HEAD/BRAIN WO CON INDICATIONS: right chest pain, fall vs syncope, head lac TECHNIQUE: Noncontrast 4.5 mm thick angled axial sections acquired from the foramen magnum to the vertex, with coronal and sagittal reformats. For radiation dose reduction, the following was used: automated exposure control, adjustment of mA and/or kV according to patient size. COMPARISON: None. FINDINGS: Image quality: Diagnostic. CSF spaces: Basal cisterns are patent. No extra-axial fluid collections. Ventricles are enlarged. Brain: No midline shift. No intracranial masses or hemorrhage. No area of hypodensity in a large vascular distribution to suggest acute infarction. Periventricular hypodensity consistent with chronic microvascular ischemic change. Age-related parenchymal loss. Skull and face: Calvarium and visualized facial bones are intact, without suspicious lesions. Contusion or scalp hematoma at the left posterior scalp, (5/15). Sinuses: Visualized sinuses and mastoids are clear. IMPRESSION: No acute intracranial hemorrhage. Dictated by: Curtis Martinez M.D. on 06/12/2024 at 0:45 Approved by: Curtis Martinez M.D. on 06/12/2024 at 0:50
--- NOTE | 2024-06-11 23:22 | DI.RAD.S_ITS ---
PROCEDURE: XR PELVIS 1-2V INDICATIONS: right chest pain, fall vs syncope, head lac TECHNIQUE: 1 view(s) of the pelvis acquired. COMPARISON: [facility], CT, CT ABDOMEN PELVIS W CON, 10/13/2023, 9:23. FINDINGS: Bones: No fractures or dislocations. No suspicious bony lesions. Clips or fiducial markers overlying the pelvis. Soft tissues: Visualized bowel gas pattern is normal. No suspicious soft tissue calcifications. IMPRESSION: No acute bony abnormality identified. Dictated by: Curtis Martinez M.D. on 06/12/2024 at 1:05 Approved by: Curtis Martinez M.D. on 06/12/2024 at 1:08
[2024-06-11 23:30] VITALS: PULSE 76; O2SAT 96
--- NOTE | 2024-06-11 23:30 | EKG_ITS ---
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
[2024-06-11 23:32] VITALS: BP 158/86; PULSE 81; RESP 20; TEMP 36.4; O2SAT 97; BMI 26.6
[2024-06-11 23:56] VITALS: BP 141/79; PULSE 75; O2SAT 95
--- NOTE | 2024-06-11 23:59 | PC.NURSE ---
Pt with dementia, drove away from home upset due to refusing to open another bottle of wine, he returned home without the car with a wound on the head, bloody and c/o right rib/chest pain. Pt has no memory of the fall, pt has little to no short term memory.
[2024-06-12] VITALS (8 sets, daily range): BP systolic 121–162; BP diastolic 58–74; PULSE 71–84; RESP 18; O2SAT 93–100
--- NOTE | 2024-06-12 00:06 | ED.FALL ---
HPI - Fall General Chief Complaint: Fall Stated Complaint: fall/head inj/cp Time Seen by Provider: 06/11/24 23:21 Source: patient, family and EMS Mode of arrival: EMS History of Present Illness HPI Narrative: 84-year-old male history of hypertension, dyslipidemia, known dementia presents with complaint fall with head injury unclear exactly what happened. Patient does not recall. He did have alcohol this evening at least several drinks unclear exactly how much from patient. He is alert he is able to answer questions he can tell me his right chest hurts. Has blood on his from scalp laceration. Patient does not recall if he fell or was injured or passed out. Patient does not have any shortness of breath. No nausea or vomiting. No numbness tingling or weakness of extremities no reported loss of bowel or bladder control. Spoke with his after she would arrived patient had some alcohol this evening she took the alcohol away he became frustrated and drove his car down town. She suspects he went to the local bar. He returned home but not with his vehicle and was found in the yd with blood. Related Data Home Medications Medication Instructions Recorded Confirmed aspirin 81 mg tablet,delayed 81 mg PO DAILY 07/18/22 05/21/24 release atorvastatin 20 mg tablet 20 mg PO DAILY 07/18/22 05/21/24 tadalafil 20 mg tablet (Cialis) 20 mg PO DAILY PRN 07/18/22 05/21/24 sildenafil 50 mg tablet 50 mg PO DAILY PRN 08/27/22 05/21/24 memantine 5 mg tablet 5 mg PO BID 10/02/23 05/21/24 primidone 50 mg tablet 150 mg PO BEDTIME 10/02/23 05/21/24 donepezil 10 mg tablet 10 mg PO DAILY 03/30/24 05/21/24 Previous Rx's Medication Instructions Recorded terazosin 2 mg capsule 2 mg PO DAILY #90 caps 05/26/23 losartan 25 mg tablet See Rx Instructions .Route 12/17/23 .COMPLEX #90 tabs ezetimibe 10 mg tablet (Zetia) 10 mg PO DAILY #90 tabs 04/13/24 hydrocodone 5 mg-acetaminophen 325 1 tab PO Q6H PRN pain #10 tabs 06/12/24 mg tablet lidocaine 5 % topical patch 1 patch topical DAILY PRN pain #30 06/12/24 ea Allergies Allergy/AdvReac Type Severity Reaction Status Date / Time No Known Drug Allergies Allergy Unverified 05/21/24 15:15 Review of Systems Review of Systems ROS Unobtainable: All systems reviewed & are unremarkable except as noted in HPI and below Patient History Medical History History of radiation therapy Prostate cancer Bladder outlet obstruction Lower urinary tract symptoms Abnormal prostate by palpation Atypical parkinsonism Short-term memory loss Elevated PSA BPH (benign prostatic hyperplasia) Erectile dysfunction Essential tremor Hypertension Social History Smoking Status: Never smoker Smoking Status: Never smoker alcohol intake frequency: 0-2 drinks per day Alcohol type: beer and wine Substance Use Type: does not use Exam Narrative Exam Narrative: GEN: Patient appears in moderate distress. Patient has quite a bit of dried blood on his head, short and pants. Patient is able to tell me his name, can not tell me what occurred he has clear speech HEAD: no raccoon/Munroe sign. NECK: Nontender, painless range of motion, trachea midline Positive Nexus criteria, no midline line tenderness, distracting injury, altered mental status, neuro deficit, positive recent EtOH. EYES: PERRLA, EOMI ENT: External inspection normal, trachea is midline, TM's are normal no hemotypanum, Nares are clear, no septal hematoma, no dental or oral injury, airway is normal and with normal occlusion, No bony tenderness RESP: Chest is tender in the right upper lateral region and has symmetric movement, no ecchymosis, breath sounds are normal no crackles, wheezes or rales, no tachypnea or accessory muscle use CVS: Heart sounds are normal, no murmur noted, No JVD. ABG/GI: Nontender, soft, normal bowel sounds, no distention, no organomegaly, pelvic rock is negative NEURO: Oriented AOx3, neuro is grossly intact, sensation and motor is normal all 4 extremities moving, cranial nerves II through XII are intact, GCS is 14 PSYCH: Normal mood and affect SKIN: Intact, warm and dry, no crepitus and without decubitus BACK: No CVA tenderness, no vertebral tenderness, no step-off's, no crepitus EXT: Atraumatic, hips are nontender, no pedal edema, normal color and temperature, normal range of motion of extremities with normal tendon exam, 2+ pulses in all four extremities Initial Vital Signs Initial Vital Signs: Vital Signs Blood Pressure 158/86 H 06/11/24 23:20 Procedures Laceration Repair Laceration 1: Site: scalp Size (cm): 5 Description: irregular Depth: involves muscle layer Local Anesthetic: lidocaine 2% Amount of anesthesia used (mL): 6 Pre-repair: wound explored and irrigated extensively Skin layer closed with: winnie Course Orders Ordered: ED Orders 06/11/24 23:21 CT cervical spine wo con Stat CT head/brain wo con Stat Chest [XR chest 1V] Stat BNP [NT-proBNP (BNP-Adult 18+)] Stat Troponin & CK Cardiac Panel Stat 06/11/24 23:22 XR pelvis 1-2V Stat Complete Blood Count AUTO DIFF Stat Comprehensive Metabolic Panel Stat Ethanol (ETOH) Stat Lactate (Lactic Acid) Stat Lipase Stat PTT Partial Thromboplastin Vamshi Stat Prothrombin Time INR Stat Type and Screen Stat EKG-12 Lead Stat 06/12/24 00:17 Urine Drug Screen, Rapid Stat Urine Microscopic Stat 06/12/24 02:46 Consult to LEASE BUYER - Script Editor Stat Discontinued Medications Hydrocodone Bitart/Acetaminophen (Hydrocodone/Acet 5/325 Prepack) 1 bottle MISC DIRECTED ONE Stop: 06/12/24 03:37 Diphtheria/Tetanus/Acell Pertussis (Tet,Diph,Pertuss(Acell),Vac/Pf 0.5 Ml Syringe) 0.5 ml IM .ONCE ONE Stop: 06/11/24 23:22 Last Admin: 06/12/24 00:11 Dose: 0.5 ml Documented By: NATHEN Fentanyl (Fentanyl 100 Mcg/2 Ml Inj) 25 mcg IV NOW ONE Stop: 06/11/24 23:22 Last Admin: 06/12/24 00:11 Dose: 25 mcg Documented By: NATHEN Sodium Chloride (Normal Saline 0.9%) 1,000 mls @ 150 mls/hr IV CONT DIPAK Last Admin: 06/12/24 00:11 Dose: 150 mls/hr Documented By: NATHEN Vital Signs Vital signs: Vital Signs - 8 hr 06/11/24 23:20 06/11/24 23:21 06/11/24 23:30 Temperature Pulse Rate 79 76 Respiratory Rate Blood Pressure 158/86 H Pulse Oximetry 98 96 Oxygen Delivery Method 06/11/24 23:32 06/11/24 23:56 06/11/24 23:56 Temperature 97.6 F Pulse Rate 81 75 Respiratory Rate 20 Blood Pressure 158/86 H 141/79 H Pulse Oximetry 97 95 Oxygen Delivery Method Room Air 06/12/24 00:00 06/12/24 00:00 06/12/24 00:30 Temperature Pulse Rate 77 71 Respiratory Rate Blood Pressure 162/70 H Pulse Oximetry 97 98 Oxygen Delivery Method 06/12/24 00:30 06/12/24 01:00 06/12/24 01:00 Temperature Pulse Rate 73 Respiratory Rate 18 Blood Pressure 141/65 H 121/58 L Pulse Oximetry 93 Oxygen Delivery Method 06/12/24 01:30 06/12/24 01:30 06/12/24 02:00 Temperature Pulse Rate 72 74 Respiratory Rate Blood Pressure 128/67 Pulse Oximetry 99 100 Oxygen Delivery Method 06/12/24 02:00 06/12/24 02:30 06/12/24 02:30 Temperature Pulse Rate 81 Respiratory Rate Blood Pressure 130/64 127/60 Pulse Oximetry 96 Oxygen Delivery Method 06/12/24 03:00 06/12/24 03:00 06/12/24 03:30 Temperature Pulse Rate 84 Respiratory Rate 18 Blood Pressure 153/74 H 130/65 Pulse Oximetry 99 Oxygen Delivery Method 06/12/24 03:30 Temperature Pulse Rate 83 Respiratory Rate Blood Pressure Pulse Oximetry 99 Oxygen Delivery Method Room Air fall Lab Data 06/12/24 00:30 06/12/24 00:30 Labs: Lab Results 06/12/24 06/12/24 Range/Units 00:17 00:30 WBC 9.9 (4.5-11.0) X10^3/uL RBC 4.27 L (4.5-5.9) X10^6/uL Hgb 14.2 (13.5-17.5) g/dL Hct 40.9 L (41-53) % MCV 95.9 (80-100) fL MCH 33.2 (26-34) PG MCHC 34.6 (30-36) % RDW 14.0 (11.6-14.8) % Plt Count 201 (150-400) X10^3/uL Neut % (Auto) 86.4 H (50-75) % Lymph % (Auto) 7.2 L (25-40) % [place] % (Auto) 6.0 (3-14) % Eos % (Auto) 0.3 L (2-4) % Baso % (Auto) 0.1 (0-2) % Neut # (Auto) 8600 H (2749-1140) /uL Lymph # (Auto) 700 L (3744-9870) /uL [place] # (Auto) 600 (0-900) /uL Eos # (Auto) 0 (0-450) /uL Baso # (Auto) 0 (0-100) /uL PT 10.8 (9.4-12.5) SECONDS INR 0.9 (0.9-1.3) APTT 22 L (25.1-36.5) SECONDS Sodium 135 L (137-145) mmol/L Potassium 4.1 (3.4-5.1) mmol/L Chloride 102 (98-107) mmol/L Carbon Dioxide 23 (22-32) mmol/L BUN 15 (9-20) mg/dL Creatinine 0.89 (0.66-1.25) mg/dL Estimated GFR > 60 (>60) mL/min BUN/Creatinine Ratio 16.9 (6-22) Glucose 102 (80-110) mg/dL Lactate 2.8 H (0.7-2.1) mmol/L Calcium 8.9 (8.4-10.2) mg/dL Total Bilirubin 0.4 (0.2-1.3) mg/dL AST 42 (17-59) IU/L ALT 35 (<50) IU/L Alkaline Phosphatase 61 (38-126) U/L Total Creatine Kinase 278 H (55-170) U/L Troponin I < 0.012 (0.01-0.034) ng/mL NT-Pro-B Natriuret Pep < 20 (<450) pg/mL Total Protein 6.8 (6.3-8.2) g/dL Albumin 4.2 (3.5-5.0) g/dL Globulin 2.6 (1.7-4.1) g/dL Albumin/Globulin Ratio 1.6 (1.0-2.8) Lipase 75 (23-300) U/L Urine RBC 0-1/hpf (0-5/HPF) Urine WBC None seen (0-5/HPF) Ur Squamous Epith Cells None seen (0-5/HPF) Urine Bacteria None seen (None) Ur Culture Indicated? Cult not indicated Vol Urine Centrifuged 10ml (spun) U Opiates 300ng/mL cut Negative (Negative) Ur Oxycodone Screen Negative (Negative) Urine Methadone Screen Negative (Negative) Ur Barbiturates Screen Negative (Negative) U Tricyclic Antidepress Negative (Negative) Ur Phencyclidine Scrn Negative (Negative) Ur Amphetamines Screen Negative (Negative) U Methamphetamines Scrn Negative (Negative) Ur MDMA Scrn (Ecstasy) Negative (Negative) U Benzodiazepines Scrn Negative (Negative) Urine Cocaine Screen Negative (Negative) U Marijuana (THC) Screen Negative (Negative) Urine pH Normal (Normal) Urine Specific [place] Normal (Normal) Ethyl Alcohol 171 H ( - 10) mg/dL Ur Creatinine Normal (Normal) Blood Type AB Positive Antibody Screen Negative Point of Care Testing Glucose POC 102 Urine Dip Bedside Urine Glucose Negative Bedside Urine Bilirubin - Negative Bedside Urine Ketone +/- 5 Urine Specific [place] 1.015 Bedside Urine Occult Blood + Bedside Urine pH 6.0 Bedside Urine Protein - Negative Bedside Urine Urobilinogen - Negative Bedside Urine Nitrite - Negative Bedside Urine Leukocytes - Negative Esterase ECG Data Attestation: I personally reviewed and interpreted this ECG as follows: Prior ECG tracings: available for review Interpretation: Sinus rhythm rate 83 [place] 198 QRS of [address] No acute [address] changes appreciated. Patient has prior from 04/16/2024 which appears similar. [facility] Narrative Medical decision making narrative: 84-year-old with known history of dementia, was drinking earlier this evening. Drove himself possibly to the bar returned home on but has some sort of head injury has clearly had on himself complaining of chest pain. Was found in the front yd unsure if he fell had a syncopal episode or other type of trauma. Vehicle is still park down town. Does not appear that it was in an accident. Point of care glucose was 102 here in the department. Labs show white count of 9.9 hemoglobin of 14.2 platelets are 201, coags are negative sodium is 135 potassium 4.1 chloride 102 CO2 23 BUN 15 creatinine 0.89 glucose of 102 lactate 2.8 LFTs are negative total CK is 278 troponins less than 0.12 tropes less than 20. ETOH is 171 Rapid drug screen is negative Point of care urine shows blood, negative nitrates negative leukocyte esterase. Urine micro shows 1 red cell no whites no squamous no bacteria. EKG shows sinus rhythm rate 83, acute changes from prior. Head CT shows no acute change. CT cervical spine shows no acute change. Chest x-ray shows no acute change. Pelvic x-ray shows no acute change. Patient scalp cleared he was about a 5 cm laceration on the posterior parietal scalp. This was repaired. Patient was able to ambulate safely. They would like to return home. notes she has been trying to get some home health care assistance as patient has dementia. She is open to [facility] [place] [facility] reaching out to her so as patient. Patient was printed and consult was placed. We will give a short course of narcotic pain medication patient has tenderness in his right upper ribs no obvious rib fractures but suspect that he there has a contusion or nondisplaced fractures and we will give a short course of pain medication Patient ambulated without issue in the department. Discharge Plan Departure Patient Disposition: Home Clinical Impression: Laceration of scalp, Right-sided chest wall pain Instructions: DI for Laceration Repair -- Winnie Activity Restrictions/Additional Instructions: Follow up for recheck, you will need removal of your winnie in 7-10 days. Please call your primary care physician to set up follow up for staple removal. Your imaging does not show any obvious rib fractures but you are tender over that area, you may if there has a contusion or some nondisplaced fractures. You can take narcotic pain medication 1-2 tablets every 6 hours as needed. This medication can make you sleepy do not drive, perform hazardous activities or make any major decisions while taking it. This medication will make you constipated please take a stool softener once to twice daily until stools are soft and regular. Prescription sent to Please return for fevers worsening symptoms, any changes in mental status, worsening pain, difficulty with breathing, coughing up blood, lightheadedness or passing out, persistent vomiting, new weakness or other new or concerning changes. Prescriptions: New hydrocodone-acetaminophen 5-325 mg tablet 1 tab PO Q6H PRN (Reason: pain) Qty: 10 0RF lidocaine 5 % adhesive patch,medicated 1 patch topical DAILY PRN (Reason: pain) Qty: 30 0RF Rx Instructions: leave on most painful area for up to 12 hrs No Action losartan 25 mg tablet See Rx Instructions .ROUTE .COMPLEX Qty: 90 3RF Dose Instruction: TAKE 1 TABLET BY MOUTH DAILY Rx Instructions: TAKE 1 TABLET BY MOUTH DAILY donepezil 10 mg tablet 10 mg PO DAILY ezetimibe [Zetia] 10 mg tablet 10 mg PO DAILY Qty: 90 3RF sildenafil 50 mg tablet 50 mg PO DAILY PRN Rx Instructions: administer 30 minutes to 4 hours before activity aspirin 81 mg tablet,delayed release (DR/EC) 81 mg PO DAILY atorvastatin 20 mg tablet 20 mg PO DAILY tadalafil [Cialis] 20 mg tablet 20 mg PO DAILY PRN Rx Instructions: administer approximately 30min before sexual activity; do not use more than 1 dose per 24hrs primidone 50 mg tablet 150 mg PO BEDTIME memantine 5 mg tablet 5 mg PO BID terazosin 2 mg capsule 2 mg PO DAILY Qty: 90 3RF Referrals: Vega Villanueva MD [Primary Care Provider] - Stand Alone Forms: Patient Portal/API
[2024-06-12] MEDS: TET,DIPH,PERTUSS(ACELL),VAC/PF 0.5 ML SYRINGE IM (00:11)
[2024-06-12] MEDS: fentaNYL 100 MCG/2 ML INJ 25 MCG IV (00:11)
[2024-06-12] MEDS: SODIUM CHLORIDE 0.9% 1,000 ML 150 ML IV (00:11)
[2024-06-12 00:33] LABS: UR Morphine/Opiate cutoff 300 Negative (Negative); Ur Creatinine Normal (Normal); Ur Specific Gravity Normal (Normal); Urine Amphetamines Negative (Negative); Urine Barbiturates Negative (Negative); Urine Benzodiazepines Negative (Negative); Urine Cocaine Negative (Negative); Urine MDMA Negative (Negative); Urine Methadone Negative (Negative); Urine Methamphetamines Negative (Negative); Urine Oxycodone Negative (Negative); Urine Phencyclidine Negative (Negative); Urine Tetrahydrocannabinol Negative (Negative); Urine Tricyclic Antidepressant Negative (Negative); Urine pH Normal (Normal)
[2024-06-12 00:59] LABS: Add Manual Diff / Slide Review NO; Basophils Absolute Auto 0 /uL (0-100); Basophils Percent Auto 0.1 % (0-2); Eosinophils Absolute Auto 0 /uL (0-450); Eosinophils Percent Auto 0.3 % (2-4); Hematocrit 40.9 % (41-53); Hemoglobin 14.2 g/dL (13.5-17.5); Lymphocytes Absolute Auto 700 /uL (1100-4500); Lymphocytes Percent Auto 7.2 % (25-40); Mean Corpuscular HGB Conc 34.6 % (30-36); Mean Corpuscular Hemoglobin 33.2 PG (26-34); Mean Corpuscular Volume 95.9 fL (80-100); Monocytes Absolute Auto 600 /uL (0-900); Neutrophils Absolute Auto 8600 /uL (1500-7000); Neutrophils Percent Auto 86.4 % (50-75); Platelet Count 201 X10^3/uL (150-400); Red Blood Cell Count 4.27 X10^6/uL (4.5-5.9); White Blood Cell Count 9.9 X10^3/uL (4.5-11.0)
[2024-06-12 01:00] LABS: Bacteria Urine None Seen; Culture Indicated Urine Cult Not Indicated; RBC Urine 0-1/HPF (0-5/HPF); Squamous Epithelial Cell Urine None Seen (0-5/HPF); Urine Volume 10mL (spun); WBC Urine None Seen (0-5/HPF)
[2024-06-12 01:06] LABS: INR 0.9 (0.9-1.3); Prothrombin Time 10.8 SECONDS (9.4-12.5)
[2024-06-12 01:09] LABS: PTT Partial Thromboplastin Tim 22 SECONDS (25.1-36.5)
[2024-06-12 01:10] LABS: Lactate (Lactic Acid) 2.8 mmol/L (0.7-2.1)
[2024-06-12 01:11] LABS: Creatine Kinase 278 U/L (55-170)
[2024-06-12 01:12] LABS: Alanine Aminotransferase 35 IU/L (<50); Albumin 4.2 g/dL (3.5-5.0); Albumin Globulin Ratio 1.6 (1.0-2.8); Alkaline Phosphatase 61 U/L (38-126); Aspartate Aminotransferase 42 IU/L (17-59); BUN Creatinine Ratio 16.9 (6-22); Bilirubin Total 0.4 mg/dL (0.2-1.3); Blood Urea Nitrogen 15 mg/dL (9-20); Calcium 8.9 mg/dL (8.4-10.2); Carbon Dioxide 23 mmol/L (22-32); Chloride 102 mmol/L (98-107); Estimated Glomerular Filt Rate > 60 mL/min (>60); Ethanol (ETOH) 171 mg/dL; Globulin 2.6 g/dL (1.7-4.1); Glucose 102 mg/dL (80-110); HEMOLYSIS < 15 (0-50); Lipase 75 U/L (23-300); Potassium 4.1 mmol/L (3.4-5.1); Sodium 135 mmol/L (137-145); Total Protein 6.8 g/dL (6.3-8.2)
[2024-06-12 01:23] LABS: NT-proBNP (BNP-Adult 18+) < 20 pg/mL (<450); Troponin I < 0.012 ng/mL (0.01-0.034)
[2024-06-12 02:31] LABS: Reflexed Lactate in 2 Hours Y
--- NOTE | 2024-06-12 14:41 | CM.SWNOTE ---
ED NETWORK CONTRACTOR Follow Up Note NETWORK CONTRACTOR receives consult from ED provider to call patient's spouse regarding home care resources. NETWORK CONTRACTOR calls patient's spouse and she reports that she has been working with an Elder Law [employer] Compressor Operator who recommended FURN[employer]ANDER through the [facility] for caregiver benefits through the [facility] and spouse has not been able to speak with a VA SW regarding this. NETWORK CONTRACTOR provides the phone number for the local [employer] [facility] as the [place] Service Officers may be able to assist patient in getting connected with this VA service. NETWORK CONTRACTOR emails patient's spouse lists of private pay and agency caregivers as well as the senior resource guide. NETWORK CONTRACTOR encourages patient's spouse to schedule PCP f/u for patient regarding ED f/u and discussing the concerns of patient driving. Elma Rae, DESTINATION SPECIALIST
== END 2024-06-12 04:04 | disposition home or self-care (01) ==
PROVIDERS: Emergency Provider Emergency Medicine; PCP Family Medicine
DX: S01.01XA Laceration without foreign body of scalp, initial encounter (principal); R07.89 Other chest pain; F03.90 Unspecified dementia, unspecified severity, without behavioral disturbance, psychotic disturbance, mood disturbance, and anxiety; I10 Essential (primary) hypertension; E78.5 Hyperlipidemia, unspecified; W19.XXXA Unspecified fall, initial encounter; Z23 Encounter for immunization
CPT/HCPCS: 12002; 70450; 71045; 72125; 72170; 80053; 80305; 80320; 81003; 81015; 82550; 82962; 83605; 83690; 83880; 84484; 85025; 85610; 85730; 86850; 86900; 86901; 90471; 93005; 96361; 96374; 99284; 90715; J3010

== ENCOUNTER 2024-06-13 09:56 | Emergency (ER) | payer MEDICARE, BC, SELFPAY ==
[2024-06-13 09:59] VITALS: BP 189/96; PULSE 79; RESP 18; TEMP 37.1; O2SAT 95; BMI 25.0
--- NOTE | 2024-06-13 09:59 | ED.CHESTPAIN ---
HPI - Chest Pain General Chief Complaint: Chest Pain Stated Complaint: Chest Pain Time Seen by Provider: 06/13/24 09:56 History of Present Illness HPI narrative: 84-year-old male with history of Parkinson's disease presents by EMS from home for right-sided chest pain. Patient is seen in our emergency department yesterday for evaluation after a fall. He apparently reported chest pain to the ED provider at that time, but chest x-ray and troponin were negative. Patient states that his chest pain has progressively gotten worse since his fall. EMS administered 100 mcg of fentanyl EN route. Related Data Home Medications Medication Instructions Recorded Confirmed aspirin 81 mg tablet,delayed 81 mg PO DAILY 07/18/22 05/21/24 release atorvastatin 20 mg tablet 20 mg PO DAILY 07/18/22 05/21/24 tadalafil 20 mg tablet (Cialis) 20 mg PO DAILY PRN 07/18/22 05/21/24 sildenafil 50 mg tablet 50 mg PO DAILY PRN 08/27/22 05/21/24 memantine 5 mg tablet 5 mg PO BID 10/02/23 05/21/24 primidone 50 mg tablet 150 mg PO BEDTIME 10/02/23 05/21/24 donepezil 10 mg tablet 10 mg PO DAILY 03/30/24 05/21/24 Previous Rx's Medication Instructions Recorded terazosin 2 mg capsule 2 mg PO DAILY #90 caps 05/26/23 losartan 25 mg tablet See Rx Instructions .Route 12/17/23 .COMPLEX #90 tabs ezetimibe 10 mg tablet (Zetia) 10 mg PO DAILY #90 tabs 04/13/24 hydrocodone 5 mg-acetaminophen 325 1 tab PO Q6H PRN pain #10 tabs 06/12/24 mg tablet lidocaine 5 % topical patch 1 patch topical DAILY PRN pain #30 06/12/24 ea Allergies Allergy/AdvReac Type Severity Reaction Status Date / Time No Known Drug Allergies Allergy Unverified 05/21/24 15:15 Patient History Medical History History of radiation therapy Prostate cancer Bladder outlet obstruction Lower urinary tract symptoms Abnormal prostate by palpation Atypical parkinsonism Short-term memory loss Elevated PSA BPH (benign prostatic hyperplasia) Erectile dysfunction Essential tremor Hypertension Social History Smoking Status: Never smoker Smoking Status: Never smoker alcohol intake frequency: 0-2 drinks per day Alcohol type: beer and wine Substance Use Type: does not use Exam Initial Vital Signs Initial Vital Signs: Vital Signs Temperature 98.8 F 06/13/24 09:59 Pulse Rate 79 06/13/24 09:59 Respiratory Rate 18 06/13/24 09:59 Blood Pressure 189/96 H 06/13/24 09:59 Pulse Oximetry 95 06/13/24 09:59 Oxygen Delivery Method Room Air 06/13/24 09:59 Const: Awake, alert, uncomfortable, tremulous Cardiac: regular rate, regular rhythm, generalized chest pain to palpation along right chest wall without crepitus RESP: unlabored, clear bilaterally, no wheezing GI: Soft, nontender, nondistended, no rebound, no guarding MSK: Atraumatic, full range of motion, pulses equal Skin: Warm, Dry, intact, no rashes Neuro: AO x2, CN II-XII grossly intact, moves all extremities, coarse resting tremor Course Orders Ordered: ED Orders 06/13/24 09:50 CBC Auto Diff [Complete Blood Count AUTO DIFF] Stat CMP [Comprehensive Metabolic Panel] Stat Troponin & CK Cardiac Panel Stat 06/13/24 09:58 XR ribs RT min 3V w CXR1V Stat 06/13/24 10:28 Consult to GENERAL SURGERY PHYSICIAN ASSISTANT - Roll Tension Tester Stat Discontinued Medications Lidocaine (Lidocaine 5% Patch) 1 each TOP NOW ONE Stop: 06/13/24 09:58 Last Admin: 06/13/24 10:02 Dose: 1 each Documented By: AMV Vital Signs Vital signs: Vital Signs - 8 hr 06/13/24 09:59 06/13/24 10:05 06/13/24 10:22 Temperature 98.8 F Pulse Rate 79 70 69 Respiratory Rate 18 13 17 Blood Pressure 189/96 H Pulse Oximetry 95 95 96 Oxygen Delivery Method Room Air Room Air 06/13/24 10:22 06/13/24 10:30 06/13/24 10:30 Temperature Pulse Rate 68 Respiratory Rate 18 Blood Pressure 146/65 H 135/65 Pulse Oximetry 96 Oxygen Delivery Method 06/13/24 11:00 06/13/24 11:00 06/13/24 11:30 Temperature Pulse Rate 68 65 Respiratory Rate 18 14 Blood Pressure 158/69 H Pulse Oximetry 97 95 Oxygen Delivery Method Room Air 06/13/24 11:30 Temperature Pulse Rate Respiratory Rate Blood Pressure 147/70 H Pulse Oximetry Oxygen Delivery Method MDM - Chest Pain Lab Data 06/13/24 09:50 06/13/24 09:50 Labs: Lab Results 06/13/24 Range/Units 09:50 WBC 6.5 (4.5-11.0) X10^3/uL RBC 4.17 L (4.5-5.9) X10^6/uL Hgb 13.6 (13.5-17.5) g/dL Hct 40.5 L (41-53) % MCV 97.0 (80-100) fL MCH 32.6 (26-34) PG MCHC 33.6 (30-36) % RDW 14.2 (11.6-14.8) % Plt Count 198 (150-400) X10^3/uL Neut % (Auto) 69.6 (50-75) % Lymph % (Auto) 18.5 L (25-40) % [place] % (Auto) 10.3 (3-14) % Eos % (Auto) 1.2 L (2-4) % Baso % (Auto) 0.4 (0-2) % Neut # (Auto) 4500 (3750-2494) /uL Lymph # (Auto) 1200 (6054-8814) /uL [place] # (Auto) 700 (0-900) /uL Eos # (Auto) 100 (0-450) /uL Baso # (Auto) 0 (0-100) /uL Sodium 136 L (137-145) mmol/L Potassium 3.9 (3.4-5.1) mmol/L Chloride 104 (98-107) mmol/L Carbon Dioxide 27 (22-32) mmol/L BUN 18 (9-20) mg/dL Creatinine 0.83 (0.66-1.25) mg/dL Estimated GFR > 60 (>60) mL/min BUN/Creatinine Ratio 21.7 (6-22) Glucose 116 H (80-110) mg/dL Calcium 9.0 (8.4-10.2) mg/dL Total Bilirubin 0.9 (0.2-1.3) mg/dL AST 39 (17-59) IU/L ALT 30 (<50) IU/L Alkaline Phosphatase 63 (38-126) U/L Total Creatine Kinase 440 H (55-170) U/L Troponin I < 0.012 (0.01-0.034) ng/mL Total Protein 7.0 (6.3-8.2) g/dL Albumin 4.1 (3.5-5.0) g/dL Globulin 2.9 (1.7-4.1) g/dL Albumin/Globulin Ratio 1.4 (1.0-2.8) Imaging Data Chest x-ray: Radiologist's Impression: PROCEDURE: XR RIBS RT MIN 3V W CXR 1V INDICATIONS: FALL YESTERDAY, R CHEST PAIN TECHNIQUE: 4 views of the ribs were acquired, along with a single view chest. COMPARISON: [facility], , XR CHEST 1V, 06/11/2024, 23:44. FINDINGS: Surgical changes and devices: Prior anterior cervical discectomy and fusion. Bones and chest wall: No acute fractures or dislocations. No suspicious bony lesions. Overlying soft tissues appear unremarkable. Lungs and pleura: No pleural effusions or pneumothorax. Lungs appear clear. Mediastinum: Mediastinal contours appear normal. Heart size is normal. IMPRESSION: No displaced rib fracture or pneumothorax. Dictated by: Nestor Mcfadden M.D. on 06/13/2024 at 9:39 Approved by: Nestor Mcfadden M.D. on 06/13/2024 at 9:43 MDM Narrative Medical decision making narrative: Right-sided chest pain after ground level fall yesterday. Dedicated rib series ordered for assessment. Patient has already received fentanyl. Lidocaine patch ordered for chest wall pain. Low suspicion for ACS based on history/physical exam. Labs unremarkable. Rib series negative for fracture. at bedside requesting care resources, GENERAL SURGERY PHYSICIAN ASSISTANT consulted and spoke with and provided resources. requesting patient be sent home with something stronger for pain. I explained that patient already has hydrocodone at home any stronger narcotics would put patient at increased risk of falls, especially since he is known to have falls when intoxicated. Recommended lidocaine patches, tylenol, ice, and other supportive therapies for home. Discharge Plan Departure Patient Disposition: Home Clinical Impression: Pain in rib Instructions: DI for Rib Contusion Activity Restrictions/Additional Instructions: Your laboratory work and rib x-rays were normal. You likely bruised your chest wall you may take Tylenol as needed and apply ice to areas of pain. Your pain should resolve in the next several days. Make sure that you continue to take deep breaths to prevent pneumonia Prescriptions: No Action losartan 25 mg tablet See Rx Instructions .ROUTE .COMPLEX Qty: 90 3RF Dose Instruction: TAKE 1 TABLET BY MOUTH DAILY Rx Instructions: TAKE 1 TABLET BY MOUTH DAILY donepezil 10 mg tablet 10 mg PO DAILY ezetimibe [Zetia] 10 mg tablet 10 mg PO DAILY Qty: 90 3RF sildenafil 50 mg tablet 50 mg PO DAILY PRN Rx Instructions: administer 30 minutes to 4 hours before activity aspirin 81 mg tablet,delayed release (DR/EC) 81 mg PO DAILY atorvastatin 20 mg tablet 20 mg PO DAILY tadalafil [Cialis] 20 mg tablet 20 mg PO DAILY PRN Rx Instructions: administer approximately 30min before sexual activity; do not use more than 1 dose per 24hrs primidone 50 mg tablet 150 mg PO BEDTIME hydrocodone-acetaminophen 5-325 mg tablet 1 tab PO Q6H PRN (Reason: pain) Qty: 10 0RF lidocaine 5 % adhesive patch,medicated 1 patch topical DAILY PRN (Reason: pain) Qty: 30 0RF Rx Instructions: leave on most painful area for up to 12 hrs memantine 5 mg tablet 5 mg PO BID terazosin 2 mg capsule 2 mg PO DAILY Qty: 90 3RF Referrals: Vega Villanueva MD [Primary Care Provider] - Stand Alone Forms: Patient Portal/API
[2024-06-13] MEDS: LIDOCAINE 5% PATCH 1 EACH TOP (10:02)
--- NOTE | 2024-06-13 10:03 | EKG_ITS ---
[id number] [place] [address] Test Date: 2024-06-13 Pat Name: nAthony Sawyer Department: Room: Gender: Male Economic Consultant: HEATHER : 1940 Requested By: Order Number: [id number] Reading MD: Fidel Nvaarro Measurements Intervals [place] Rate: 72 P: 15 OR: 168 QRS: -6 QRSD: 94 T: 9 QT: 414 QTc: 453 Interpretive Statements Normal sinus rhythm Nonspecific ST abnormality Electronically Signed On 06-17-2024 19:46:47 PDT by Fidel Navarro
[2024-06-13 10:05] VITALS: PULSE 70; RESP 13; O2SAT 95
[2024-06-13 10:05] LABS: Add Manual Diff / Slide Review NO; Basophils Absolute Auto 0 /uL (0-100); Basophils Percent Auto 0.4 % (0-2); Eosinophils Absolute Auto 100 /uL (0-450); Eosinophils Percent Auto 1.2 % (2-4); Hematocrit 40.5 % (41-53); Hemoglobin 13.6 g/dL (13.5-17.5); Lymphocytes Absolute Auto 1200 /uL (1100-4500); Lymphocytes Percent Auto 18.5 % (25-40); Mean Corpuscular HGB Conc 33.6 % (30-36); Mean Corpuscular Hemoglobin 32.6 PG (26-34); Monocytes Absolute Auto 700 /uL (0-900); Monocytes Percent Auto 10.3 % (3-14); Neutrophils Absolute Auto 4500 /uL (1500-7000); Neutrophils Percent Auto 69.6 % (50-75); Platelet Count 198 X10^3/uL (150-400); Red Blood Cell Count 4.17 X10^6/uL (4.5-5.9); Red Cell Distribution Width 14.2 % (11.6-14.8); White Blood Cell Count 6.5 X10^3/uL (4.5-11.0)
--- NOTE | 2024-06-13 10:09 | PC.NURSE ---
Pt came to ED via EMS from home for increased and worsening right-sided rib pain after glf on friday evening. states that she went up to the bedroom to give pt his morning medications at 0900 and pt was writhing in pain and breathing heavily. Pt confused & has dementia at baseline. Upon arrival to ED, pt c/o 10/10 right sided rib pain. Equal chest rise and fall observed and RR 24 w/ O2 sat 95% on RA. Pt has large laceration on back of head which was repaired with macarena. expresses concerns regarding pt's increased falls and continued ETOH consumption. Dr Young notified. SHOELACE TIPPING MACHINE OPERATOR consult ordered. Pt a&ox3.
[2024-06-13 10:22] VITALS: BP 146/65; PULSE 69; RESP 17; O2SAT 96
[2024-06-13 10:27] LABS: Alanine Aminotransferase 30 IU/L (<50); Albumin 4.1 g/dL (3.5-5.0); Albumin Globulin Ratio 1.4 (1.0-2.8); Alkaline Phosphatase 63 U/L (38-126); Aspartate Aminotransferase 39 IU/L (17-59); BUN Creatinine Ratio 21.7 (6-22); Bilirubin Total 0.9 mg/dL (0.2-1.3); Blood Urea Nitrogen 18 mg/dL (9-20); Carbon Dioxide 27 mmol/L (22-32); Chloride 104 mmol/L (98-107); Creatine Kinase 440 U/L (55-170); Estimated Glomerular Filt Rate > 60 mL/min (>60); Globulin 2.9 g/dL (1.7-4.1); Glucose 116 mg/dL (80-110); HEMOLYSIS < 15 (0-50); Potassium 3.9 mmol/L (3.4-5.1); Sodium 136 mmol/L (137-145)
[2024-06-13 10:30] VITALS: BP 135/65; PULSE 68; RESP 18; O2SAT 96
[2024-06-13 10:38] LABS: Troponin I < 0.012 ng/mL (0.01-0.034)
[2024-06-13 11:00] VITALS: BP 158/69; PULSE 68; RESP 18; O2SAT 97
[2024-06-13 11:30] VITALS: BP 147/70; PULSE 65; RESP 14; O2SAT 95
--- NOTE | 2024-06-13 11:45 | CM.SWNOTE ---
ED NUCLEAR PLANT EQUIPMENT OPERATOR Note This NUCLEAR PLANT EQUIPMENT OPERATOR received follow up consult yesterday regarding patient and spoke with patient's spouse via phone. Today patient presents to ED via EMS due to concern for increase in right sided rib pain. Patient presents as A/Ox3, patient is unsure if he received pain medication. Present in room is patient and spouse. Patient's spouse does most of the talking and endorses that patient's drinking has increased from 2 glass of wine to an additional 1-3 beers. Spouse endorses concern and NUCLEAR PLANT EQUIPMENT OPERATOR discusses limiting the alcohol in the home and limiting access to operating the vehicle when under the influence. Patient's spouse states that patient has had 3 injuries in the last month after ETOH use. Patient's spouse states that they have 6 kids and two live locally and she is reaching out for more help in managing patient's needs and prevention of further accidents. It is reported that they have a FWW at home that patient can use if needed. Patient is independent with ADLs and ambulates independently at baseline, it is reported that patient falls when he drinks too much. NUCLEAR PLANT EQUIPMENT OPERATOR provides hand copies of Senior Resource guide, private pay and agency lists of caregivers, documents that were emailed to spouse yesterday. Patient's spouse states that she was not able to schedule PCP f/u but wrote a message to PCP requesting f/u. Patient's spouse is open to more assistance in establishing ED f/u appt with PCP, NUCLEAR PLANT EQUIPMENT OPERATOR left hand off information for NUCLEAR PLANT EQUIPMENT OPERATOR working tomorrow. Plan: patient to d/c to home with spouse upon medical clearance, patient's spouse and family to look into caregiver resources for patient, patient to f/u with PCP. ANN Friedman
--- NOTE | 2024-06-14 18:00 | CM.SWNOTE ---
ED SUPERVISOR PIPELINE MAINTENANCE Follow Up Note: SUPERVISOR PIPELINE MAINTENANCE was consulted to assist with PCP follow up appt coordination during business hours. SUPERVISOR PIPELINE MAINTENANCE called pt and discussed follow up appointment. Per pt , she was able to secure a follow up appointment with pt PCP on 06/21 at 10:00am. No other needs requested at this time. Plan: Pt to follow up with PCP following ED visit on 06/21 at 10:00am. KIM Benjamin
== END 2024-06-13 11:35 | disposition home or self-care (01) ==
PROVIDERS: Emergency Provider Emergency Medicine; PCP Family Medicine
DX: R07.81 Pleurodynia (principal); W18.30XA Fall on same level, unspecified, initial encounter; G20.A1 Parkinson's disease without dyskinesia, without mention of fluctuations; I10 Essential (primary) hypertension
CPT/HCPCS: 36415; 71101; 80053; 82550; 84484; 85025; 93005; 99284

== ENCOUNTER → 2024-08-19 13:51 | Outpatient (CLI) | payer MEDICARE, BC, SELFPAY ==
[2024-08-19 16:10] LABS: Prostate Specific Antigen 1.52 ng/mL (0.10-4.00)
== END ==
LOC: LAB 13:53
PROVIDERS: PCP Family Medicine; Referring Provider Urology; Visit Provider Urology
DX: C61 Malignant neoplasm of prostate (principal); Z92.3 Personal history of irradiation
CPT/HCPCS: 36415; 84153

== ENCOUNTER → 2024-10-04 08:56 | Outpatient (CLI) | payer MEDICARE, BC, SELFPAY ==
[2024-10-04 10:50] LABS: Cholesterol 184 mg/dL (140-199); HDL Cholesterol 67 mg/dL (40-60); LDL Cholesterol Calculated 103 mg/dL (<100); Triglycerides 69 mg/dL (35-150)
[2024-10-05 05:36] LABS: Apolipoprotein B 84 mg/dL (<90)
== END ==
LOC: LAB 08:57
PROVIDERS: PCP Family Medicine; Referring Provider Family Medicine; Visit Provider Family Medicine
DX: I10 Essential (primary) hypertension (principal); C61 Malignant neoplasm of prostate; N40.1 Benign prostatic hyperplasia with lower urinary tract symptoms
CPT/HCPCS: 36415; 80061; 82172

== ENCOUNTER → 2025-01-17 08:05 | Outpatient (CLI) | payer MEDICARE, BC, SELFPAY ==
--- NOTE | 2025-01-17 08:06 | DI.ECHO.S_ITS ---
[facility] +---------+ [facility] : : [address] : : [place] : : [id number] : : Phone: [phone] Echocardiogram Report + + :Name: BO AGUILLON Study Date: 01/17/2025 Height: 68 in : :[facility] ReadingLocation: Weight: 170 lb : : Gender: Male BSA: 1.9 m2 : :: 1940 Age: 84 yrs BP: 128/76 mmHg: :Reason For Study: CORONARY ARTERY DISEASE : :Ordering Physician: TIFFANI, : :CHRISSY Ta Performed By: Norma Pryor : :Referring: CHRISSY DIALLO : + + Interpretation Summary The ejection fraction is estimated to be 55-60%. Diastolic parameters suggest probable normal left ventricular diastolic function and normal filling pressures. The right ventricle is normal in size and function. There is mild mitral regurgitation. There is mild tricuspid regurgitation. The right ventricular systolic pressure is estimated to be at least 32 mmHg based on an estimated right atrial pressure of 3 mm Hg. Procedure: A two-dimensional transthoracic echocardiogram with color flow and Doppler was performed. The study quality was technically adequate. There is no prior echocardiogram noted for this patient. The patient was in sinus bradycardia with heart rates between 55-60 bpm during the exam. Left Ventricle: The left ventricle is normal in size and wall thickness. The ejection fraction is estimated to be 55-60%. Diastolic parameters suggest probable normal left ventricular diastolic function and normal filling pressures. Right Ventricle: The right ventricle is normal in size and function. Atria: The left atrial size is normal. Right atrial size is normal. There is no Doppler evidence for an interatrial shunt. Mitral Valve: The mitral valve leaflets appear to open well. The mitral valve is normal. There is mild mitral regurgitation. Aortic Valve: The aortic valve is trileaflet. The aortic valve opens well. The aortic valve is slightly calcified. There is no aortic valve stenosis. No aortic regurgitation is present. Tricuspid Valve: The tricuspid valve leaflets are thin and pliable. There is mild tricuspid regurgitation. The right ventricular systolic pressure is estimated to be at least 32 mmHg based on an estimated right atrial pressure of 3 mm Hg. Pulmonic Valve: The pulmonic valve leaflets are thin and pliable; valve motion is normal. There is mild pulmonic regurgitation. Great Vessels: The aortic root is normal size. The dimensions of the ascending aorta are normal. The IVC is of normal diameter and collapses greater than 50% with a sniff. This suggests a low right atrial pressure of 3 mm Hg. Pericardium/ Pleura There is no pericardial effusion. There is no pleural effusion. MMode/2D Measurements & Calculations LVIDd: 4.5 cm LVOT diam: 1.8 cm LVIDs: 2.9 cm Ao root diam: 3.4 cm FS: 34.6 % asc Aorta Diam: 3.4 cm EPSS: 0.43 cm Ao Arch Diam (Prox Trans): 2.9 cm IVSd: 0.97 cm LVPWd: 0.89 cm LV randolph. diameter/BSA (cm/m^2): 2.4 LV sys. diameter/BSA (cm/m^2): 1.5 LA A2 area: 20.5 cm2 RA long axis: 5.3 cm LA A4 area: 16.0 cm2 RA area: 16.4 cm2 LA length (vol): 5.1 cm RA vol: 42.7 ml LA vol: 54.8 ml RA : 22.4 ml/m2 LA vol index: 28.7 ml/m2 IVC diam: 1.7 cm RVD1 (basal): 4.0 cm RVD2 (mid): 3.3 cm TAPSE: 1.9 cm Doppler Measurements & Calculations Ao V2 max: 138.5 cm/sec LVOT Max Onur: 83.8 cm/sec Ao V2 mean: 97.4 cm/sec LV V1 max P.8 mmHg Ao max P.7 mmHg LV V1 VTI: 20.5 cm Ao mean P.2 mmHg DB(I,D): 1.6 cm2 Ao V2 VTI: 34.5 cm DB(V,D): 1.6 cm2 sev ratio: 0.60 DB indexed to BSA (cm^2/m^2): 0.83 MV E max onur: 71.4 cm/sec TR max onur: 267.8 cm/sec MV A max onur: 80.0 cm/sec TR max P.7 mmHg MV E/A: 0.89 PA V2 max: 92.9 cm/sec Med Peak E' Onur: 6.6 cm/sec PA V2 mean: 61.6 cm/sec E/E' med: 10.9 PA mean P.7 mmHg Lat Peak E' Onur: 8.1 cm/sec PA pr(Accel): 23.8 mmHg E/E' lat: 8.8 E/e' average: 9.9 MV dec time: 0.24 sec SV(LVOT): 54.7 ml Reading Physician:12:47 PM
--- NOTE | 2025-01-17 17:29 | DI.NM.S_ITS ---
DATE OF SERVICE: 01/17/2025 NUCLEAR CARDIOLOGY MYOCARDIAL PERFUSION STUDY PROCEDURE PERFORMED: Exercise treadmill stress test with gating to assess ejection fraction and regional wall motion. ORDERING PROVIDER: Chrissy Diallo M.D. INDICATIONS: The patient is an 84-year-old male with CAD, status post percutaneous revascularization. CARDIAC STRESS: The patient was able to exercise for 4 minutes 31 seconds on a standard Alpesh protocol, suggesting average exercise capacity with an AYESHA of +3%. He had a normal heart rate and blood pressure response to exercise, achieving a maximum heart rate of 136 bpm (101% of his predicted maximum). He had no chest discomfort or other anginal symptoms. His resting ECG showed sinus rhythm with a right superior QRS axis with associated T-wave inversions in the lateral leads, suggesting probable limb lead reversal but ST segments appear relatively normal. With stress, there are no significant obvious ST-segment shifts although with considerable motion artifact. He had occasional PACs that became more frequent with exercise yet without any sustained arrhythmia until 2 minutes into recovery when he develops a brief, self-terminating SVT at 146 bpm but without symptoms. He had no other significant arrhythmias. At 3 minutes 20 seconds of exercise at a heart rate of 120 bpm, 25 millicuries of technetium-99m Myoview was injected and he was imaged 15 minutes later using a gated SPECT acquisition protocol. Earlier in the day while at rest, he had been injected with 12.7 millicuries of technetium- 99m Myoview and was imaged 15 minutes later, again using a gated SPECT acquisition protocol. FINDINGS: 1. Raw data. There is fairly good myocardial tracer uptake without any significant motion artifact. The lung/heart ratio is normal at 0.32 with a normal TID ratio of 0.80. 2. Quantitated gated SPECT: Post-stress ejection fraction is 68% without any focal wall motion abnormality. Resting ejection fraction is 67% with a normal resting end-diastolic volume of 92 mL. 3. Myocardial perfusion imaging: Post-stress supine images show a normal myocardial perfusion pattern, supported by normal perfusion imaging in the prone position. The resting images show an identical perfusion pattern without any clear areas of improvement. IMPRESSION: 1. Normal myocardial perfusion study for ischemia. 2. No perfusion defects to suggest myocardial ischemia or prior myocardial infarction. 3. Normal left ventricular size and systolic function without any focal wall motion abnormality. 4. Average exercise capacity without angina or ECG evidence of ischemia, although with probable limb lead reversal on the ECG tracings. He had increasingly frequent PACs with exercise and a brief run of SVT in early recovery that was self-limited and he remained asymptomatic. Anthony Sawyer - BRENDA/janes/GUILLE doc#: [id number]/job#: [id number] dd: 01/17/2025 16:58:00 dt: 01/17/2025 17:06:00 DICTATING MD/COPIES TO: Akhil Barragan MD; Chrissy Diallo M.D. COPIES MNE: DAVINA;
== END ==
LOC: ECHO 08:05
PROVIDERS: PCP Family Medicine; Referring Provider Internal Medicine Cardiovascular Disease; Visit Provider Internal Medicine Cardiovascular Disease
DX: I25.10 Atherosclerotic heart disease of native coronary artery without angina pectoris (principal); I08.1 Rheumatic disorders of both mitral and tricuspid valves; Z95.5 Presence of coronary angioplasty implant and graft
CPT/HCPCS: 78452; 93017; 93306; A9502

== ENCOUNTER → 2025-04-12 11:54 | Outpatient (CLI) | payer MEDICARE, BC, SELFPAY ==
[2025-04-12 14:23] LABS: Prostate Specific Antigen 0.502 ng/mL (0.10-4.00)
== END ==
PROVIDERS: PCP Family Medicine; Referring Provider Urology; Visit Provider Urology
DX: C61 Malignant neoplasm of prostate (principal); R97.20 Elevated prostate specific antigen [PSA]
CPT/HCPCS: 36415; 84153

== ENCOUNTER 2025-08-02 20:57 | Emergency (ER) | payer MEDICARE, BC, SELFPAY ==
[2025-08-02 20:58] VITALS: BP 143/84; PULSE 69; O2SAT 95
[2025-08-02 20:59] VITALS: BP 143/84; PULSE 72; RESP 16; TEMP 36.6; O2SAT 97; BMI 24.3
[2025-08-02 21:00] VITALS: PULSE 68; RESP 17; O2SAT 96
[2025-08-02 21:48] LABS: Add Manual Diff / Slide Review NO; Hematocrit 45.7 % (41-53); Hemoglobin 15.5 g/dL (13.5-17.5); Lymphocytes Absolute Auto 1300 /uL (1100-4500); Mean Corpuscular HGB Conc 34.0 % (30-36); Mean Corpuscular Hemoglobin 32.4 PG (26-34); Mean Corpuscular Volume 95.3 fL (80-100); Platelet Count 213 X10^3/uL (150-400)
[2025-08-02 22:08] LABS: Alanine Aminotransferase 35 IU/L (<50); Albumin 5.0 g/dL (3.5-5.0); Albumin Globulin Ratio 1.7 (1.0-2.8); Alkaline Phosphatase 53 U/L (38-126); Blood Urea Nitrogen 12 mg/dL (9-20); Calcium 9.5 mg/dL (8.4-10.2); Carbon Dioxide 23 mmol/L (22-32); Chloride 105 mmol/L (98-107); Estimated Glomerular Filt Rate > 60 mL/min (>60); Globulin 2.9 g/dL (1.7-4.1); Glucose 92 mg/dL (70-99); HEMOLYSIS < 15 (0-50); Potassium 4.1 mmol/L (3.4-5.1); Sodium 140 mmol/L (137-145); Total Protein 7.9 g/dL (6.3-8.2)
[2025-08-02 22:20] LABS: NT-proBNP (BNP-Adult 18+) 39 pg/mL (<450); Troponin I < 0.012 ng/mL (0.01-0.034)
--- NOTE | 2025-08-02 22:41 | ED.FALL ---
HPI - Fall General Chief Complaint: Fall Stated Complaint: fall Time Seen by Provider: 08/02/25 21:06 Source: EMS Mode of arrival: EMS History of Present Illness HPI Narrative: 85-year-old gentleman with a history of dementia and wandering, was apparently found wandering by medics earlier taken home. Called later by his as he had stumbled and hit his left arm against side of the table causing a skin tear. Patient is pleasantly demented. There was no fever he is not complaining of any pain, it is not quite sure where he is but he is easily redirectable Related Data Home Medications ?Medication ?Instructions ?Recorded ?Confirmed aspirin 81 mg tablet,delayed 81 mg PO DAILY 07/18/22 04/20/25 release tadalafil 20 mg tablet (Cialis) 20 mg PO DAILY PRN 07/18/22 04/20/25 sildenafil 50 mg tablet 50 mg PO DAILY PRN 08/27/22 04/20/25 memantine 5 mg tablet 5 mg PO BID 10/02/23 04/20/25 primidone 50 mg tablet 150 mg PO BEDTIME 10/02/23 04/20/25 donepezil 10 mg tablet 10 mg PO DAILY 03/30/24 04/20/25 Previous Rx's ?Medication ?Instructions ?Recorded lidocaine 5 % topical patch 1 patch topical DAILY PRN pain #30 06/12/24 ea losartan 25 mg tablet See Rx Instructions .Route 01/21/25 .COMPLEX #90 tabs terazosin 2 mg capsule 2 mg PO DAILY #90 caps 03/24/25 ezetimibe 10 mg tablet (Zetia) 10 mg PO DAILY #90 tabs 04/11/25 atorvastatin 20 mg tablet 20 mg PO DAILY #90 tabs 07/08/25 Allergies Allergy/AdvReac Type Severity Reaction Status Date / Time No Known Drug Allergies Allergy Unverified 08/02/25 20:58 Review of Systems Review of Systems Narrative: Pertinent positive and negative findings as per HPI Patient History Medical History History of radiation therapy Prostate cancer Bladder outlet obstruction Lower urinary tract symptoms Abnormal prostate by palpation Atypical parkinsonism Short-term memory loss Elevated PSA BPH (benign prostatic hyperplasia) Erectile dysfunction Essential tremor Hypertension alcohol intake frequency: 0-2 drinks per day Alcohol type: beer and wine Exam Initial Vital Signs Initial Vital Signs: Vital Signs Pulse Rate 69 08/02/25 20:58 Blood Pressure 143/84 H 08/02/25 20:58 Pulse Oximetry 95 08/02/25 20:58 General: Healthy appearing, in no acute distress. Not oriented to person place her events HEENT: Moist mucous membranes, normal sclera with reactive pupils, Respiratory: Lungs are clear to auscultation, no wheezing no rales no rhonchi. Full and symmetrical air movement Cardiac: Regular rate and rhythm Abdomen: Soft, nontender, no flank pain Skin: Large skin tear to left forearm. No underlying bony injury, he is neurovascularly intact distally. There is no obvious laceration that is able to be sutured Neurologic: Grossly neurologically intact with no obvious asymmetries or abnormalities Extremities: No trauma to other extremities Psych: Pleasantly demented Course Orders Ordered: ED Orders 08/02/25 21:40 Complete Blood Count AUTO DIFF Stat Comprehensive Metabolic Panel Stat NT-proBNP (BNP-Adult 18+) Stat Troponin I Stat Vital Signs Vital signs: Vital Signs - 8 hr 08/02/25 20:58 08/02/25 20:58 08/02/25 20:59 Temperature 97.8 F Pulse Rate 69 72 Respiratory Rate 16 Blood Pressure 143/84 H 143/84 H Pulse Oximetry 95 97 Oxygen Delivery Method Room Air 08/02/25 21:00 Temperature Pulse Rate 68 Respiratory Rate 17 Blood Pressure Pulse Oximetry 96 Oxygen Delivery Method Room Air MDM - Fall Lab Data 08/02/25 21:40 08/02/25 21:40 Labs: Lab Results 08/02/25 Range/Units 21:40 WBC 5.7 (4.5-11.0) X10^3/uL RBC 4.79 (4.5-5.9) X10^6/uL Hgb 15.5 (13.5-17.5) g/dL Hct 45.7 (41-53) % MCV 95.3 (80-100) fL MCH 32.4 (26-34) PG MCHC 34.0 (30-36) % RDW 14.3 (11.6-14.8) % Plt Count 213 (150-400) X10^3/uL Neut % (Auto) 64.9 (50-75) % Lymph % (Auto) 22.3 L (25-40) % Trinity % (Auto) 10.8 (3-14) % Eos % (Auto) 1.3 L (2-4) % Baso % (Auto) 0.7 (0-2) % Neut # (Auto) 3700 (4435-0880) /uL Lymph # (Auto) 1300 (9827-0366) /uL Trinity # (Auto) 600 (0-900) /uL Eos # (Auto) 100 (0-450) /uL Baso # (Auto) 0 (0-100) /uL Sodium 140 (137-145) mmol/L Potassium 4.1 (3.4-5.1) mmol/L Chloride 105 (98-107) mmol/L Carbon Dioxide 23 (22-32) mmol/L BUN 12 (9-20) mg/dL Creatinine 0.82 (0.66-1.25) mg/dL Estimated GFR > 60 (>60) mL/min BUN/Creatinine Ratio 14.6 (6-22) Glucose 92 (70-99) mg/dL Calcium 9.5 (8.4-10.2) mg/dL Total Bilirubin 0.4 (0.2-1.3) mg/dL AST 40 (17-59) IU/L ALT 35 (<50) IU/L Alkaline Phosphatase 53 (38-126) U/L Troponin I < 0.012 (0.01-0.034) ng/mL NT-Pro-B Natriuret Pep 39 (<450) pg/mL Total Protein 7.9 (6.3-8.2) g/dL Albumin 5.0 (3.5-5.0) g/dL Globulin 2.9 (1.7-4.1) g/dL Albumin/Globulin Ratio 1.7 (1.0-2.8) Urine Dip Bedside Urine Glucose Negative Bedside Urine Bilirubin - Negative Bedside Urine Ketone - Negative Urine Specific [place] 1.005 Bedside Urine Occult Blood - Negative Bedside Urine pH 6.0 Bedside Urine Protein - Negative Bedside Urine Urobilinogen - Negative Bedside Urine Nitrite - Negative Bedside Urine Leukocytes - Negative Esterase MDM Narrative Medical decision making narrative: 85-year-old gentleman with a history of dementia worsening wandering behaviors. Apparently was outside this evening and was found by medics and taken home. Called later in the evening after he had stumbled and suffered a skin tear to the left arm. He is brought into the emergency department for further evaluation. The left forearm is cleaned and dressed by nursing staff. There is not enough tissue or significant laceration to allow any type of suturing. Medical workup shows normal CBC, metabolic panel, no evidence of acute coronary syndrome, no evidence of urinary tract infection Patient is comfortably walking laps around the emergency department with various ED staff. His is called his daughter will come to pick him up. He is safe for discharge. We will discuss importance of techniques to try to prevent him from getting out of the house and discussions regarding possible need for placement into a dementia facility because of wandering. He is safe for discharge Discharge Plan Departure Patient Disposition: Home Clinical Impression: Wandering behavior due to dementia Skin tear of forearm without complication Qualifiers: Encounter type: initial encounter Laterality: left Qualified Code(s): S51.812A - Laceration without foreign body of left forearm, initial encounter Instructions: DI for Alzheimer Disease Activity Restrictions/Additional Instructions: Fill the seen in the emergency room after suffering a skin tear to his forearm. This was cleaned and a dressing was placed. Some of the skin has been torn off. There is not enough tissue to need any stitches. This needs antibiotic ointment and a dressing overt until it begins to heal I believe it may be time to consider looking at locking devices on doors so that bill isn't able to get out and wander. Sometimes something as simple as a small latch near the bottom of the door is not something he is going to figure out how to undo. He continues to wander you may need to consider dementia care facilities for his safety. If you find that you are getting worse or develop any new symptoms, please feel free to return to the emergency department for further evaluation. Prescriptions: No Action donepezil 10 mg tablet 10 mg PO DAILY losartan 25 mg tablet See Rx Instructions .ROUTE .COMPLEX Qty: 90 2RF Dose Instruction: TAKE 1 TABLET BY MOUTH DAILY Rx Instructions: TAKE 1 TABLET BY MOUTH DAILY terazosin 2 mg capsule 2 mg PO DAILY Qty: 90 3RF ezetimibe [Zetia] 10 mg tablet 10 mg PO DAILY Qty: 90 1RF atorvastatin 20 mg tablet 20 mg PO DAILY Qty: 90 0RF sildenafil 50 mg tablet 50 mg PO DAILY PRN Rx Instructions: administer 30 minutes to 4 hours before activity aspirin 81 mg tablet,delayed release (DR/EC) 81 mg PO DAILY tadalafil [Cialis] 20 mg tablet 20 mg PO DAILY PRN Rx Instructions: administer approximately 30min before sexual activity; do not use more than 1 dose per 24hrs primidone 50 mg tablet 150 mg PO BEDTIME lidocaine 5 % adhesive patch,medicated 1 patch topical DAILY PRN (Reason: pain) Qty: 30 0RF Rx Instructions: leave on most painful area for up to 12 hrs memantine 5 mg tablet 5 mg PO BID Referrals: Vega Villanueva MD [Primary Care Provider, Family Practice] Stand Alone Forms: Patient Portal/API
[2025-08-02 23:06] VITALS: BP 123/70; PULSE 75; RESP 16; O2SAT 100
== END 2025-08-02 23:07 | disposition home or self-care (01) ==
PROVIDERS: Emergency Provider Emergency Medicine; PCP Family Medicine
DX: S51.812A Laceration without foreign body of left forearm, initial encounter (principal); X58.XXXA Exposure to other specified factors, initial encounter; F03.918 Unspecified dementia, unspecified severity, with other behavioral disturbance
CPT/HCPCS: 80053; 81003; 83880; 84484; 85025; 99282